=== PATIENT | female | born 1945 | race Caucasian/White ===

== ENCOUNTER 2019-12-10 08:38 | Outpatient (CLI) | payer MEDICARE, SELFPAY ==
--- NOTE | ~2019-12-10 | MM_ITS ---
EXAMINATION: MM screening [facility] BI w stephan HISTORY: Screening mammogram TECHNIQUE: Craniocaudal and mediolateral oblique 3-D tomosynthesis images were obtained and synthetic 2-D images were generated. CAD analysis was submitted and interpreted. COMPARISON: Comparison to multiple prior studies sequentially, with oldest reviewed study dated 05/02. BREAST PARENCHYMAL COMPOSITION: There are scattered areas of fibroglandular density. FINDINGS: There is no evidence of suspicious mass, calcification, or architectural distortion to sugg est malignancy in either breast. There has been no suspicious interval change. IMPRESSION: 1. No mammographic evidence of malignancy. 2. Recommend routine screening mammography in one year. BI-RADS Category 1: Negative Reviewed, dictated and finalized at location A.
--- NOTE | ~2019-12-10 | DEXA_ITS ---
Bone Density Report Name: Sadaf Blunt Age: 74 Sex: Female Ethnicity: White Date of : 1945 Indication: osteopenia; monitoring treatment; prior fracture; Referring Provider: Marimu Lopez Study: Bone densitometry was performed. Exam Date: December 10, 2019 Accession number: [id number] Bone Density: Region BMD T-score Z-score Classification AP Spine (L2, L3) 1.003 -0.5 2.0 Normal Femoral Neck (Left) 0.614 -2.1 0.0 Osteopenia Total Hip (Left) 0.752 -1.6 0.3 Osteopenia Total Hip Bilateral Avg 0.783 -1.3 0.6 Osteopenia Femoral Neck (Right) 0.633 -1.9 0.2 Osteopenia Total Hip (Right) 0.814 -1.0 0.8 Normal World Health Organization criteria for BMD impression classify patients as: Normal (T-score at or above -1.0), Osteopenia (T-score between -1.0 and -2.5), or Osteoporosis (T-score at or below -2.5). 10-year Fracture Risk: FRAX not reported because: Prior hip or vertebral fracture Treated for osteoporosis Previous Exams: Region Exam Age BMD T-score BMD Change BMD Change Date g/cm2 vs Baseline vs Previous AP Spine(L2, L3) 12/10/2019 74 1.003 -0.5 0.030(3.0%)# 0.024(2.4%)* 08/13/2017 71 0.979 -0.7 0.006(0.6%)# 0.006(0.6%)# 05/14/2013 67 0.973 -0.8 Total Hip(Left) 12/10/2019 74 0.752 -1.6 -0.099(-11.7%) -0.037(-4.7%)* 08/13/2017 71 0.789 -1.3 -0.062(-7.3%)# -0.062(-7.3%)# 05/14/2013 67 0.852 -0.7 Total Hip(Right) 12/10/2019 74 0.814 -1.0 0.050(6.5%)# 0.019(2.4%) 08/13/2017 71 0.795 -1.2 0.030(4.0%)# 0.030(4.0%)# 05/14/2013 67 0.765 -1.5 *Denotes significance at 95% confidence level, LSC for AP Spine = 0.022 g/cm2, LSC for Total Hip = 0.027 g/cm2 Clinical Information Provided by Patient: Have had a previous hip or vertebral fracture Has had a low trauma fracture Is being treated for osteoporosis Has used the following medications: Actonel (i.e. risedronate), Fosamax (i.e. alendronate), Vitamin D, Calcium Patient maximum height was 63 Menopause Age: 48 Drinks caffeinated beverages Onset of menses at age 10 Number of children 3 Impression: The patient has low bone mass, based on the Left Femoral Neck T-score. The patient has risk factors, including: previous fracture. The BMD for the Total Hip(Left) decreased, changing by -4.7% since the last DXA exam. Discussion: SIGNIFICANT BONE LOSS OBSERVED. Adherence to therapy (including calcium and vitamin D intake) should be assessed. If compliance
== END 2019-12-10 08:39 | disposition home or self-care (01) ==
LOC: ANHIMG 08:44
PROVIDERS: PCP Internal Medicine; Visit Provider Nurse Practitioner
DX: Z12.31 Encounter for screening mammogram for malignant neoplasm of breast (principal); M81.0 Age-related osteoporosis without current pathological fracture; M85.89 Other specified disorders of bone density and structure, multiple sites
CPT/HCPCS: 77063; 77067; 77080

== ENCOUNTER 2020-04-21 03:30 | Outpatient (CLI) | payer MEDICARE, SELFPAY ==
[2020-04-21 19:05] LABS: SARS-CoV-2 RNA PCR Negative
== END 2020-04-21 03:31 | disposition home or self-care (01) ==
LOC: ANHCOVIDDT 03:31
PROVIDERS: PCP Internal Medicine; Visit Provider Internal Medicine Gastroenterology
DX: Z01.812 Encounter for preprocedural laboratory examination (principal); Z20.828 Contact with and (suspected) exposure to other viral communicable diseases
CPT/HCPCS: 87635; C9803; U0003

== ENCOUNTER 2020-04-23 03:02 | Day surgery (SDC) | payer MEDICARE, SELFPAY ==
[2020-04-23 06:55] VITALS: BP 115/71; PULSE 72; RESP 12; TEMP 36.7; O2SAT 95; BMI 31.1
[2020-04-23] MEDS: LACTATED RINGERS 1,000 ML 150 ML IV CONT (07:03)
--- NOTE | 2020-04-23 07:24 | WPDANESEPPF ---
Anes - Initial Pre Proc Eval Procedure: Operation Date: 04/23/20 08:00 Proposed Procedures p Screening Colonoscopy - Selvin Shaw MD Date/Time: 04/23/20 07:24 Surgeon: Selvin Shaw MD Pre Op Diagnosis: Hx Colon Polyps Patient Data Age: 74 Gender: F Height: 1.6 m Weight: 79.8 kg Last Vital Signs Temp 36.7 C 04/23/20 06:55 Pulse 72 04/23/20 06:55 Resp 12 04/23/20 06:55 BP 115/71 04/23/20 06:55 Pulse Ox 95 04/23/20 06:55 Allergies Allergy/AdvReac Type Severity Reaction Status Date / Time No Known Allergies Allergy Unverified 04/23/20 06:54 Home Medications Medication Instructions Recorded Confirmed Type aspirin 81 mg tablet,delayed 81 mg PO DAILY 06/17/19 04/23/20 History release calcium carbonate 600 mg calcium 1,500 mg PO DAILY 06/17/19 04/16/20 History (1,500 mg) tablet krill 500 mg-omega 3 115 mg-dha 30 1 cap PO DAILY 06/17/19 04/16/20 History mg-epa 64 dk-zrmzheo-tshir capsule multivitamin 1 cap PO DAILY 06/17/19 04/16/20 History vitamins A,C,Y-jjlm-atcqqv 7,160 1 tablet PO BID 06/20/19 04/16/20 History unit-113 mg-100 unit tablet cholecalciferol (vitamin D3) 50 50 mcg PO DAILY #90 tablet 12/22/19 04/16/20 Rx mcg (2,000 unit) tablet lisinopril 20 1 tablet PO DAILY #90 tablet 01/26/20 04/16/20 Rx mg-hydrochlorothiazide 25 mg tablet Patient hx anesthesia problems: none Family hx anesthesia problems: none PMFSH Past Medical History Medical History (Updated 04/23/20 @ 07:25 by Tutu Ross MD) Age related osteoporosis Benign essential hypertension Body mass index (bmi) 31.0-31.9, adult (12/23/18) Hypertension Obesity, unspecified (05/18/16) Surgical History Surgical History (Updated 04/23/20 @ 07:25 by Tutu Ross MD) History of hand surgery Status post kyphoplasty L1 Family History Family History Grandparent Family history of osteoporosis Family history of cardiovascular disease Cerebrovascular accident Mother Family history of osteoporosis Patient's mother is in good health Family history of malignant neoplasm of kidney Father Family history of chronic obstructive pulmonary disease, Onset Age: 82 Sibling Family history of lung cancer Family history of malignant neoplasm of brain Other Family history of coronary artery disease Social History Social History Smoking status: Never smoker Second hand tobacco smoke exposure: No Alcohol intake: current Drinks per week: 3 Alcohol use details: WINE Substance use: never Substance use type: does not use Living arrangements: with family Spiritual care concerns: No Anes - Eval Final PreProcedure Day of Procedure 04/23/20 07:24 Patient weight: obese Heart: regular rate and rhythm Lungs: clear to auscultation and normal air movement Airway: Mallampati scale class II Neurological: alert and oriented Last oral intake: >/= 8 hours ASA classification: III Emergent: no Anesthetic plan: proceed Anesthesia type and monitoring: general GIVS Informed Consent: The patient's anesthetic plan and its attendant risks and benefits were discussed with the patient/family/POA. Questions were solicited and answers provided to the satisfaction of the patient/family/POA.
--- NOTE | 2020-04-23 07:45 | WPDGICN ---
Assessment and Plan Assessment and plan (1) History of colon polyps: Code(s): Z86.010 - Personal history of colonic polyps Status: Acute Assessment and Plan: Patient is a history of colonoscopies with several adenomatous colon polyps removed in the past. Most recent colonoscopy was 2014. Patient has no current symptoms. Plan is for surveillance colonoscopy at this time in in 5 years. GI Consult Note Consult date/time: 04/23/20 07:45 HPI: Sadaf Blunt is a 74 year old female seen in evaluation at the request of Dr Hagen. Patient has a history of tubular adenomatous colon polyp removed from the colon in 2014. Patient presents today for follow-up examination. She states that her current weight appetite bowel movements are normal. She denies abdominal pain. Her family history is noncontributory. She has previously had colon polyps on endoscopies over the years. Review of Systems Review of Systems: All systems reviewed & are unremarkable except as noted in HPI and below PMFSH Past Medical History Medical History Age related osteoporosis Benign essential hypertension Body mass index (bmi) 31.0-31.9, adult (12/23/18) Hypertension Obesity, unspecified (05/18/16) Surgical History Surgical History (Updated 04/23/20 @ 07:25 by Tutu Ross MD) History of hand surgery Status post kyphoplasty L1 Family History Family History Grandparent Family history of osteoporosis Family history of cardiovascular disease Cerebrovascular accident Mother Family history of osteoporosis Patient's mother is in good health Family history of malignant neoplasm of kidney Father Family history of chronic obstructive pulmonary disease, Onset Age: 82 Sibling Family history of lung cancer Family history of malignant neoplasm of brain Other Family history of coronary artery disease Social History Social History Smoking status: Never smoker Second hand tobacco smoke exposure: No Alcohol intake: current Drinks per week: 3 Alcohol use details: WINE Substance use: never Substance use type: does not use Living arrangements: with family Spiritual care concerns: No Meds Home Medications and Allergies Home Medications Medication Instructions Recorded Confirmed Type aspirin 81 mg tablet,delayed 81 mg PO DAILY 06/17/19 04/23/20 History release calcium carbonate 600 mg calcium 1,500 mg PO DAILY 06/17/19 04/16/20 History (1,500 mg) tablet krill 500 mg-omega 3 115 mg-dha 30 1 cap PO DAILY 06/17/19 04/16/20 History mg-epa 64 qi-bhthsyd-slytn capsule multivitamin 1 cap PO DAILY 06/17/19 04/16/20 History vitamins A,C,I-jesf-rurtfj 7,160 1 tablet PO BID 06/20/19 04/16/20 History unit-113 mg-100 unit tablet cholecalciferol (vitamin D3) 50 50 mcg PO DAILY #90 tablet 12/22/19 04/16/20 Rx mcg (2,000 unit) tablet lisinopril 20 1 tablet PO DAILY #90 tablet 01/26/20 04/16/20 Rx mg-hydrochlorothiazide 25 mg tablet Allergies Allergy/AdvReac Type Severity Reaction Status Date / Time No Known Allergies Allergy Unverified 04/23/20 06:54 Vital Signs Vital Signs - 24 hr 04/23/20 06:55 Temperature 98.0 F Pulse Rate 72 Respiratory Rate 12 Blood Pressure 115/71 Pulse Oximetry 95 Exam Narrative: Exam Narrative: Physical exam reveals patient to be alert. Vital signs stable. HEENT exam unremarkable. Lungs are clear to auscultation and percussion. Heart is without murmur or extra sounds. Abdominal exam bowel sounds are present soft nontender with no organomegaly. Digital external rectal exam is normal.
[2020-04-23 08:13] VITALS: BP 93/59; PULSE 66; RESP 19; O2SAT 98
[2020-04-23 08:23] VITALS: BP 101/71; PULSE 68; RESP 22; O2SAT 97
[2020-04-23 08:33] VITALS: BP 122/83; PULSE 63; RESP 21; O2SAT 97
== END 2020-04-23 08:44 | disposition home or self-care (01) ==
PROVIDERS: PCP Internal Medicine; Visit Provider Internal Medicine Gastroenterology
PROC: 0DJD8ZZ Inspection of Lower Intestinal Tract, Via Natural or Artificial Opening Endoscopic (ICD-10-PCS; CPT 45378; principal; 2020-04-23 08:00)
DX: Z12.11 Encounter for screening for malignant neoplasm of colon (principal); K63.5 Polyp of colon; K57.30 Diverticulosis of large intestine without perforation or abscess without bleeding; K64.8 Other hemorrhoids; M81.0 Age-related osteoporosis without current pathological fracture; E11.9 Type 2 diabetes mellitus without complications; E66.9 Obesity, unspecified
CPT/HCPCS: 45385; 88305; J2704; J7120

== ENCOUNTER 2020-11-23 07:52 | Outpatient (CLI) | payer MEDICARE, SELFPAY ==
[2020-11-23 18:37] LABS: Alanine Aminotransferase 24 U/L (4-35); Alkaline Phosphatase 65 U/L (38-126); Anion Gap 2 mmol/L (8-16); Aspartate Amino Transferase 26 U/L (14-36); Bilirubin,Total 0.3 mg/dL (0.2-1.3); Blood Urea Nitrogen 14 mg/dL (7-17); Calcium 9.9 mg/dL (8.4-10.2); Carbon Dioxide 37 mmol/L (22-30); Chloride 101 mmol/L (98-107); Cholesterol 206 mg/dL (0-200); Estimated Glomerular Filt Rate > 60; Glucose 97 mg/dL (65-105); HDL Direct 82 mg/dL; Potassium 4.3 mmol/L (3.4-5.0); Sodium 140 mmol/L (137-145); Triglycerides 124 mg/dL (<150)
[2020-11-23 18:48] LABS: LDL Cholesterol Direct 86 mg/dL
[2020-11-23 18:55] LABS: Vitamin D 25 Hydroxy 35.6 ng/mL
== END 2020-11-23 07:53 | disposition home or self-care (01) ==
PROVIDERS: PCP Internal Medicine; Visit Provider Nurse Practitioner
DX: M81.0 Age-related osteoporosis without current pathological fracture (principal); Z78.0 Asymptomatic menopausal state; E78.5 Hyperlipidemia, unspecified; R79.89 Other specified abnormal findings of blood chemistry
CPT/HCPCS: 36415; 80053; 80061; 82306; 84443

== ENCOUNTER 2020-12-13 14:28 | Outpatient (CLI) | payer MEDICARE, SELFPAY ==
--- NOTE | ~2020-12-13 | MM_ITS ---
EXAMINATION: MM screening [facility] BI w stephan HISTORY: Screening mammogram TECHNIQUE: Craniocaudal and mediolateral oblique 3-D tomosynthesis images were obtained and synthetic 2-D images were generated. CAD analysis was submitted and interpreted. COMPARISON: 12/10/2019, 08/13/2017, 06/21/2016 BREAST PARENCHYMAL COMPOSITION: There are scattered areas of fibroglandular density. FINDINGS: There is no evidence of suspicious mass, calcification, or architectural distortion to sugg est malignancy in either breast. There has been no suspicious interval change. IMPRESSION: 1. No mammographic evidence of malignancy. 2. Recommend routine screening mammography in one year. BI-RADS Category 1: Negative Reviewed, dictated and finalized at location A.
== END 2020-12-13 14:29 | disposition home or self-care (01) ==
LOC: ANHIMG 14:32
PROVIDERS: PCP Internal Medicine; Visit Provider Internal Medicine
DX: Z12.31 Encounter for screening mammogram for malignant neoplasm of breast (principal)
CPT/HCPCS: 77063; 77067

== ENCOUNTER 2021-05-25 08:19 | Outpatient (CLI) | payer MEDICARE, SELFPAY ==
[2021-05-25 11:19] LABS: Alanine Aminotransferase 26 U/L (4-35); Alkaline Phosphatase 74 U/L (38-126); Anion Gap 5 mmol/L (8-16); Aspartate Amino Transferase 26 U/L (14-36); Bilirubin,Total 0.4 mg/dL (0.2-1.3); Blood Urea Nitrogen 16 mg/dL (7-17); Calcium 10.2 mg/dL (8.4-10.2); Carbon Dioxide 36 mmol/L (22-30); Chloride 97 mmol/L (98-107); Cholesterol 216 mg/dL (0-200); Estimated Glomerular Filt Rate > 60; Glucose 106 mg/dL (65-110); HDL Direct 94 mg/dL; Potassium 4.5 mmol/L (3.4-5.0); Sodium 138 mmol/L (137-145); Triglycerides 114 mg/dL (<150)
[2021-05-25 11:30] LABS: LDL Cholesterol Direct 100 mg/dL
[2021-05-25 11:36] LABS: Vitamin D 25 Hydroxy 51.2 ng/mL
== END 2021-05-25 08:20 | disposition home or self-care (01) ==
PROVIDERS: PCP Internal Medicine; Visit Provider Internal Medicine
DX: E78.5 Hyperlipidemia, unspecified (principal); E03.9 Hypothyroidism, unspecified; E55.9 Vitamin D deficiency, unspecified; I10 Essential (primary) hypertension
CPT/HCPCS: 36415; 80053; 80061; 82306; 84443

== ENCOUNTER 2021-11-29 09:28 | Outpatient (CLI) | payer MEDICARE, SELFPAY ==
[2021-11-29 20:58] LABS: Alanine Aminotransferase 26 U/L (6-35); Albumin Level 4.3 g/dL (3.5-5.1); Alkaline Phosphatase 80 U/L (38-126); Anion Gap 1 mmol/L (8-16); Aspartate Amino Transferase 27 U/L (14-36); Bilirubin,Total 0.3 mg/dL (0.2-1.3); Blood Urea Nitrogen 16 mg/dL (7-17); Calcium 9.6 mg/dL (8.4-10.2); Carbon Dioxide 38 mmol/L (22-30); Chloride 96 mmol/L (98-107); Estimated Glomerular Filt Rate > 60; Glucose 98 mg/dL (65-110); Potassium 4.8 mmol/L (3.4-5.0); Sodium 135 mmol/L (137-145)
[2021-11-29 21:12] LABS: Free T4 Free Thyroxine 1.06 ng/mL (0.78-2.19)
== END 2021-11-29 09:29 | disposition home or self-care (01) ==
PROVIDERS: PCP Internal Medicine; Visit Provider Nurse Practitioner
DX: E78.5 Hyperlipidemia, unspecified (principal); I10 Essential (primary) hypertension; R79.89 Other specified abnormal findings of blood chemistry
CPT/HCPCS: 36415; 80053; 84439; 84443

== ENCOUNTER 2021-12-29 07:33 | Outpatient (CLI) | payer MEDICARE, SELFPAY ==
--- NOTE | ~2021-12-29 | MM_ITS ---
EXAMINATION: MM screening [facility] BI w stephan HISTORY: Screening TECHNIQUE: Craniocaudal and mediolateral oblique 3-D tomosynthesis images were obtained and synthetic 2-D images were generated. CAD analysis was submitted and interpreted. COMPARISON: . Comparison to multiple prior studies sequentially, with oldest reviewed study dated 2. BREAST PARENCHYMAL COMPOSITION: There are scattered areas of fibroglandular density. FINDINGS: There is no evidence of suspicious mass, calcification, or architectural distortion to sugg est malignancy in either breast. There has been no suspicious interval change. IMPRESSION: 1. No mammographic evidence of malignancy. 2. Recommend routine screening mammography in one year. BI-RADS Category 1: Negative Reviewed, dictated and finalized at location A.
== END 2021-12-29 07:34 | disposition home or self-care (01) ==
PROVIDERS: PCP Internal Medicine; Visit Provider Nurse Practitioner
DX: Z12.31 Encounter for screening mammogram for malignant neoplasm of breast (principal)
CPT/HCPCS: 77063; 77067

== ENCOUNTER 2022-06-13 08:47 | Outpatient (CLI) | payer MEDICARE, SELFPAY ==
[2022-06-13 19:40] LABS: Alanine Aminotransferase 33 U/L (6-35); Albumin Level 4.3 g/dL (3.5-5.1); Alkaline Phosphatase 76 U/L (38-126); Anion Gap 5 mmol/L (8-16); Aspartate Amino Transferase 56 U/L (14-36); Bilirubin,Total 0.5 mg/dL (0.2-1.3); Blood Urea Nitrogen 19 mg/dL (7-17); Calcium 9.3 mg/dL (8.4-10.2); Carbon Dioxide 34 mmol/L (22-30); Chloride 98 mmol/L (98-107); Cholesterol 218 mg/dL (0-200); Estimated Glomerular Filt Rate > 60; Glucose 91 mg/dL (65-110); HDL Direct 80 mg/dL; Sodium 137 mmol/L (137-145); Triglycerides 116 mg/dL (<150)
[2022-06-13 19:51] LABS: LDL Cholesterol Direct 87 mg/dL
[2022-06-13 20:42] LABS: Free T4 Free Thyroxine 0.95 ng/mL (0.78-2.19)
== END 2022-06-13 08:48 | disposition home or self-care (01) ==
PROVIDERS: PCP Internal Medicine; Visit Provider Internal Medicine
DX: E78.5 Hyperlipidemia, unspecified (principal); I10 Essential (primary) hypertension; R79.89 Other specified abnormal findings of blood chemistry; E55.9 Vitamin D deficiency, unspecified
CPT/HCPCS: 36415; 80053; 80061; 82306; 84439; 84443

== ENCOUNTER 2023-03-09 08:30 | Outpatient (CLI) | payer MEDICARE, SELFPAY ==
[2023-03-09 18:57] LABS: Basophils Absolute Auto 0.1 K/mm3 (0.0-0.1); Basophils Percent Auto 0.9 % (0.2-1.2); Eosinophils Absolute Auto 0.2 K/mm3 (0-0.3); Eosinophils Percent Auto 2.3 % (0-4.4); Hematocrit 46.4 % (37.0-47.0); Immature Granulocyte Absolute 0.07 K/mm3 (0.00-0.031); Immature Granulocyte Percent A 1.1 % (0-0.5); Immature Platelet Fraction Pct 11.6 % (0.9-11.2); Lymphocytes Absolute Auto 0.92 K/mm3 (0.9-3.2); Lymphocytes Percent Auto 13.9 % (18.3-44.2); Mean Corpuscular HGB Conc 32.3 g/dl (32-36); Mean Corpuscular Hemoglobin 31.1 pg (26-34); Mean Corpuscular Volume 96.3 fl (80-100); Mean Platelet Volume 13.3 fl (7.4-10.4); Monocytes Percent Auto 14.5 % (2.6-8.5); Neutrophils Absolute Auto 4.5 K/mm3 (1.3-6.7); Neutrophils Percent Auto 67.3 % (45.5-73.1); Platelet Count Result 244 k/mm3 (150-375); Red Blood Count 4.82 M/mm3 (4.2-5.4); Red Cell Distribution Width 13.2 % (11.5-14.5); White Blood Count 6.6 K/mm3 (4.5-10.0)
[2023-03-09 19:18] LABS: LDL Cholesterol Direct 103 mg/dL
[2023-03-09 19:24] LABS: Free T4 Free Thyroxine 1.43 ng/mL (0.78-2.19)
[2023-03-09 19:49] LABS: Alanine Aminotransferase 26 U/L (6-35); Albumin Level 4.2 g/dL (3.5-5.1); Alkaline Phosphatase 66 U/L (38-126); Anion Gap 2 mmol/L (8-16); Aspartate Amino Transferase 33 U/L (14-36); Bilirubin,Total 0.5 mg/dL (0.2-1.3); Blood Urea Nitrogen 13 mg/dL (7-17); Calcium 9.6 mg/dL (8.4-10.2); Carbon Dioxide 37 mmol/L (22-30); Chloride 97 mmol/L (98-107); Estimated Glomerular Filt Rate > 60; Glucose 106 mg/dL (65-110); HDL Direct 69 mg/dL; Potassium 4.1 mmol/L (3.4-5.0); Sodium 136 mmol/L (137-145); Triglycerides 117 mg/dL (<150)
[2023-03-09 19:55] LABS: Cholesterol 214 mg/dL (0-200)
== END 2023-03-09 08:31 | disposition home or self-care (01) ==
PROVIDERS: PCP Internal Medicine; Visit Provider Internal Medicine
DX: R53.83 Other fatigue (principal); I10 Essential (primary) hypertension; E78.5 Hyperlipidemia, unspecified; E03.9 Hypothyroidism, unspecified
CPT/HCPCS: 36415; 80053; 80061; 84439; 84443; 85025; 85055

== ENCOUNTER 2023-03-15 09:21 | Outpatient (CLI) | payer MEDICARE, SELFPAY ==
--- NOTE | ~2023-03-15 | XR_ITS ---
AP and oblique views of the left ribs, and PA and lateral chest radiographs Clinical History: Pain Findings: No rib fracture is seen. Osseous alignment is anatomic. There is linear scarring at the lef t mid to lower lung field.. Cardiomediastinal contour is within normal limits. Soft tissues are unrem arkable. L1 compression fracture with vertebroplasty cement noted. Impression: No rib fracture is seen. L1 compression fracture with vertebroplasty cement. Linear left mid to lower lung field scarring. Reviewed, dictated and finalized at location . Impression: No rib fracture is seen. L1 compression fracture with vertebroplasty cement. Linear left mid to lower lung field scarring.
== END 2023-03-15 09:22 | disposition home or self-care (01) ==
PROVIDERS: PCP Internal Medicine; Visit Provider Physician Assistant
DX: R07.81 Pleurodynia (principal)
CPT/HCPCS: 71101

== ENCOUNTER 2023-11-22 08:09 | Outpatient (CLI) | payer MEDICARE, SELFPAY ==
[2023-11-22 18:43] LABS: Cholesterol 216 mg/dL (0-200); HDL Direct 85 mg/dL; Triglycerides 129 mg/dL (<150)
[2023-11-22 18:54] LABS: LDL Cholesterol Direct 103 mg/dL
[2023-11-22 19:00] LABS: Free T4 Free Thyroxine 1.17 ng/mL (0.78-2.19)
== END 2023-11-22 08:10 | disposition home or self-care (01) ==
PROVIDERS: PCP Internal Medicine; Visit Provider Internal Medicine
DX: E78.5 Hyperlipidemia, unspecified (principal); E03.9 Hypothyroidism, unspecified; I10 Essential (primary) hypertension; R53.83 Other fatigue; R79.89 Other specified abnormal findings of blood chemistry
CPT/HCPCS: 36415; 80061; 84439; 84443

== ENCOUNTER 2024-03-24 11:09 | Outpatient (CLI) | payer MEDICARE, SELFPAY ==
--- NOTE | ~2024-03-24 | MM_ITS ---
EXAMINATION: MM screening [facility] w stephan HISTORY: Screening TECHNIQUE: Craniocaudal and mediolateral oblique 3-D tomosynthesis images were obtained and synthetic 2-D images were generated. CAD analysis was submitted and interpreted. COMPARISON: Comparison to multiple prior studies sequentially, with oldest reviewed study dated 01/2015. BREAST PARENCHYMAL COMPOSITION: Not dense: There are scattered areas of fibroglandular density. FINDINGS: There is no evidence of suspicious mass, calcification, or architectural distortion to sugg est malignancy in either breast. There has been no suspicious interval change. IMPRESSION: 1. No mammographic evidence of malignancy. 2. Recommend routine screening mammography in one year. BI-RADS Category 1: Negative Reviewed, dictated and finalized at location B.
== END 2024-03-24 11:10 | disposition home or self-care (01) ==
LOC: ANHIMG 11:10
PROVIDERS: PCP Internal Medicine; Visit Provider Internal Medicine
DX: Z12.31 Encounter for screening mammogram for malignant neoplasm of breast (principal)
CPT/HCPCS: 77063; 77067

== ENCOUNTER 2024-11-26 09:53 | Outpatient (CLI) | payer MEDICARE, SELFPAY ==
--- NOTE | ~2024-11-26 | XR_ITS ---
AP and lateral views of the right hip Clinical history: Pain Findings: No acute fracture or dislocation is seen. Osseous alignment is anatomic. Bilateral hip and SI joint spaces are preserved. There is a soft tissue calcification is superior to the right greater trochanter.. Impression: Soft tissue calcification superior to the right greater trochanter suspicious for calcific tendinitis of the gluteal tendons in this region. No fracture or dislocation. Reviewed, dictated and finalized at location M. Impression: Soft tissue calcification superior to the right greater trochanter suspicious f or calcific tendinitis of the gluteal tendons in this region. No fracture or dislocation.
--- OUTSIDE RECORDS SUMMARY | 2024-11-26 09:58 | XMS_ITS | Encounter Summary ---
Author Organization [facility] Address [address] [facility] [place] [address] Care Team Providers Care Barge Hand Name Role Phone Unavailable Primary Care Provider Unavailabl e Encounter Details Date Type Department Care Team (Late st Contact Info) Description 06/21/2022 Lab Requisition [facility] DermPath Lab [address] [place] [id number] Zachariah Jackson MD [address] [place] [address] Social History Tobacco Use Types Packs/Day Years Used Date Smoking Tobacco: Never Assessed Comments Unknown Sex and Gender Information Value Date Recorded Sex Assigned at Not on file Legal Sex Female 9:14 AM TRIPE SCRAPER Gender Identity Not on file Sexual Orientation Not on file documented as of this encounter Plan of Treatment Not on file documented as of this encounter Procedures Procedure Name Priority Date/Time Associated Diagnosis Comments DERMATOPATHOLOGY Routine 06/21/2022 12:0 0 AM TRIPE SCRAPER documented in this encounter Results * DERMATOPATHOLOGY (06/21/2022 12:00 AM TRIPE SCRAPER) Case Report Dermatopathology Report Case: [id number] Authorizing Provider: Zachariah Jackson MD Collected: 06/21/2022 12:00 AM Ordering Location: [facility] Derm[facility] Lab Received: 06/21/2022 04:32 PM Pathologist: Court Brink MD Specimen: Skin, left ant mandibular 2 2:39 PM TRIPE SCRAPER DERMATOPATHOLOGY LABORATORY Final Diagnosis Specimen A. SKIN, left ant mandibular: DERMAL SCAR RESIDUAL BASAL CELL CARCINOMA NOT IDENTIFIED (L90.5) 2 2:39 PM TRIPE SCRAPER DERMATOPATHOLOGY LABORATORY at 1439 TRIPE SCRAPER Clinical History BCC bx site 2 2:39 PM TRIPE SCRAPER DERMATOPATHOLOGY LABORATORY Gross Description Specimen A: Received is one formalin filled container labeled with the patient's name and designated left ant mandibular. The specimen consists of a non-oriented ellipse of skin measuring 20x7x6 mm. The epidermal surface is unremarkable. The margin is inked green. The 12 o'clock and 6 o'clock tips are submitted in cassette 1. The remainder of the ellipse is serially sectioned and submitted in cassette 2-3. Jar 0. 2 2:39 PM [facility] DERMATOPATHOLOGY LABORATORY Microscopic Description Specimen A. SKIN, left ant mandibular: There are fibroblasts and collagen bundles oriented parallel to the skin surface. There are elongated blood vessels, some of which are oriented perpendicular to the skin surface. No basal cell carcinoma is identified. 2 2:39 PM TRIPE SCRAPER DERMATOPATHOLOGY LABORATORY Disclaimer An external and internal positive and negative controls are appropriate for the histochemical, immunohistochemical and immunofluorescence stain(s) in this case (if any), except where stated explicitly. The performance characteristics of the stain(s) cited in this report were developed and its performance characteristic determined by the Dermatopathology Laboratory at [facility], directed by Dr. Dominic Orellana. These tests need not be, and therefore are not, approved by the [place] Food and Drug Administration. The tests are used for clinical purposes. Billing Codes Specimen Charges Stain Charges 45392 1 2 2:39 PM TRIPE SCRAPER DERMATOPATHOLOGY LABORATORY Embedded Images 2 2:39 PM TRIPE SCRAPER DERMATOPATHOLOGY LABORATORY Pathology/Cytolog y TISSUE SPECIMEN FROM SKIN / Unknown 06/21/2022 06/21/2022 4:32 PM TRIPE SCRAPER us Zachariah Jackson MD LAB - PATHOLOGY/CYTOLOGY ORDERAB LES Final Result DERMATOPATHOLOGY LABORATORY [facility] - Department of Dermatology [address] [place] [address], [facility] [phone] documented in this encounter Visit Diagnoses Not on filedocumented in this encounter
--- OUTSIDE RECORDS SUMMARY | 2024-11-26 09:58 | XMS_ITS | Encounter Summary ---
Author Organization [facility] Address [address] [place] [address] Care Team Providers Care Sewage Reticulation Drafting Officer Name Role Phone Unavailable Primary Care Provider Unavailabl e Encounter Details Date Type Department Care Team (Late st Contact Info) Description 05/31/2022 Lab Requisition [facility] DermPath Lab [address] [place] [id number] Zachariah Jackson MD [address] [place] [address] Social History Tobacco Use Types Packs/Day Years Used Date Smoking Tobacco: Never Assessed Comments Unknown Sex and Gender Information Value Date Recorded Sex Assigned at Not on file Legal Sex Female 9:14 AM CLEANING HANDYMAN Gender Identity Not on file Sexual Orientation Not on file documented as of this encounter Plan of Treatment Not on file documented as of this encounter Procedures Procedure Name Priority Date/Time Associated Diagnosis Comments DERMATOPATHOLOGY Routine 05/30/2022 12:0 0 AM CLEANING HANDYMAN documented in this encounter Results * DERMATOPATHOLOGY (05/30/2022 12:00 AM CLEANING HANDYMAN) Case Report Dermatopathology Report Case: [id number] Authorizing Provider: Zachariah Jackson MD Collected: 05/30/2022 12:00 AM Ordering Location: [facility] DermPath Lab Received: 05/31/2022 04:03 PM Pathologist: Court Brink MD Specimen: Skin, left ant mandibular 3:16 PM CLEANING HANDYMAN DERMATOPATHOLOGY LABORATORY Final Diagnosis Specimen A. SKIN, left ant mandibular: BASAL CELL CARCINOMA, NODULAR TYPE (C44.319) 3:16 PM CLEANING HANDYMAN DERMATOPATHOLOGY LABORATORY at [address] CLEANING HANDYMAN Clinical History Papule r/o BCC 2 3:16 PM CLEANING HANDYMAN DERMATOPATHOLOGY LABORATORY Gross Description Specimen A: Received is one formalin filled container labeled with the patient's name and designated left ant mandibular. The specimen consists of a shave biopsy measuring 4x3x2 mm. Jar 0. 2 3:16 PM [facility] DERMATOPATHOLOGY LABORATORY Microscopic Description Specimen A. SKIN, left ant mandibular: Within the dermis there are aggregates of basaloid cells with a high nuclear to cytoplasmic ratio and peripheral palisading. 2 3:16 PM CLEANING HANDYMAN DERMATOPATHOLOGY LABORATORY Disclaimer An external and internal positive and negative controls are appropriate for the histochemical, immunohistochemical and immunofluorescence stain(s) in this case (if any), except where stated explicitly. The performance characteristics of the stain(s) cited in this report were developed and its performance characteristic determined by the Dermatopathology Laboratory at [facility], directed by Dr. Dominic Orellana. These tests need not be, and therefore are not, approved by the [place] Food and Drug Administration. The tests are used for clinical purposes. Billing Codes Specimen Charges Stain Charges 39103 1 2 3:16 PM CLEANING HANDYMAN DERMATOPATHOLOGY LABORATORY Embedded Images 2 3:16 PM CLEANING HANDYMAN DERMATOPATHOLOGY LABORATORY Pathology/Cytolog y TISSUE SPECIMEN FROM SKIN / Unknown 05/30/2022 05/31/2022 4:03 PM CLEANING HANDYMAN Zachariah Jackson MD LAB - PATHOLOGY/CYTOLOGY ORDERAB LES Final Result DERMATOPATHOLOGY LABORATORY [facility] - Department of Dermatology [facility] Medicine [address] [place] [address], [address] [place] [address], [facility] [phone] documented in this encounter Visit Diagnoses Not on filedocumented in this encounter
--- OUTSIDE RECORDS SUMMARY | 2024-11-26 09:58 | XMS_ITS | Encounter Summary ---
Author Organization [facility] Address [address] [place] [address] Care Team Providers Care Computer Animator Name Role Phone Unavailable Primary Care Provider Unavailabl e Encounter Details Date Type Department Care Team (Late st Contact Info) Description 11/23/2022 Lab Requisition 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 Received: 11/23/2022 08:53 AM Pathologist: Court Brink MD Specimens: A) - Skin, left upper arm B) - Skin, left chin 5:48 PM CDT DERMATOPATHOLOGY LABORATORY Final Diagnosis Specimen A. SKIN, left upper arm: BASAL CELL CARCINOMA, NODULAR TYPE (C44.619) Specimen B. 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 The specimen consists of a shave biopsy measuring 6x4x2 mm. Jar 0. Specimen B: Received is one formalin filled container labeled with the patient's name and designated left chin. The specimen consists of a shave biopsy measuring 6x5x2 mm. Jar 0. 3 5:48 PM CDT DERMATOPATHOLOGY LABORATORY Microscopic Description Specimen A. SKIN, left upper arm: Within the dermis there are aggregates of basaloid cells with a high nuclear to cytoplasmic ratio and peripheral palisading. Specimen B. SKIN, left chin: The epidermis shows parakeratosis, full thickness disorderly maturation of keratinocytes, mitoses at different levels, and dyskeratotic cells. 3 5:48 PM CDT DERMATOPATHOLOGY LABORATORY Disclaimer An external and internal positive and negative controls are appropriate for the histochemical, immunohistochemical and immunofluorescence stain(s) in this case (if any), except where stated explicitly. The performance characteristics of the stain(s) cited in this report were developed and its performance characteristic determined by the Dermatopathology Laboratory at [facility], directed by Dr. Dominic Orellana. These tests need not be, and therefore are not, approved by the [place] Food and Drug Administration. The tests are used for clinical purposes. Billing Codes Specimen Charges Stain Charges 04466 01775 1 1 3 5:48 PM CDT DERMATOPATHOLOGY LABORATORY Embedded Images 3 5:48 PM CDT DERMATOPATHOLOGY LABORATORY Pathology/Cytology TISSUE SPECIMEN FROM SKIN / Unknown 11/21/2022 11/23/2022 8:53 AM CDT Miscellaneous samples (specimen) TISSUE SPECIMEN FROM SKIN / Unknown 11/21/2022 11/23/2022 8:53 AM CDT Zachariah Jackson MD LAB - PATHOLOGY/CYTOLOGY ORDERAB LES Final Result DERMATOPATHOLOGY LABORATORY [facility] - Department of Dermatology [facility] [address] [place] [address], [address] [phone] documented in this encounter Visit Diagnoses Not on filedocumented in this encounter
--- OUTSIDE RECORDS SUMMARY | 2024-11-26 09:58 | XMS_ITS | Clinical Summary ---
Author Organization [facility] Address [address] [place] [address] Care Team Providers Care Budget Accountant Name Role Phone Unavailable Primary Care Provider Unavailabl e Source Comments [facility] [employer],non-owned Affiliates and Associated Physician Practices is amultiple site organization consisting of ambulatory clinics and hospital sitesin [place], [place], [place] and [place]. This disclosure is being madepursuant to the Care Everywhere program and may not contain all information available regarding this patient. 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 Gender Identity Not on file Sexual Orientation Not on file Plan of Treatment Health Maintenance Due Date Last Done Comments BONE DENSITY TESTING 1945 DTAP/TDAP/TD VACCINES (1 - Tdap) 1962 PNEUMOCOCCAL VACCINE 50+ (1 of 1 - PCV) 1993 ZOSTER VACCINE (1 of 2) 1993 Respiratory Syncytial Virus (RSV) Vaccine Pt: or over 60 yrs (1 - 1-dose 75+ series) 2018 COVID-19 VACCINE ( - 2023-2 5 season) 2024 DEPRESSION SCREENING 07/02/2024 MEDICARE AWV CALENDAR YEAR 2024 INFLUENZA VACCINE (Season Ended) 2025 HEPATITIS B VACCINE Aged Out No longe r eligible based on patient's age to complete this topic HIB VACCINE Aged Out No longer eligi ble based on patient's age to complete this topic HPV VACCINE Aged Out No longer eligi ble based on patient's age to complete this topic MENINGOCOCCAL (Group B) VACC INE SHARED DECISION-MAKING Aged Out No longer eligibl e based on patient's age to complete this topic MENINGOCOCCAL GROUPS A/C/Y/W VACCINE Aged Out No longer eligible b ased on patient's age to complete this topic Insurance
--- OUTSIDE RECORDS SUMMARY | 2024-11-26 09:58 | XMS_ITS | Continuity of Care Document ---
Author Organization [facility] Address [address] [place] [address] [place] [address] Phone Care Team Providers Care Vocational Training Teacher Name Role Phone Alvin Bravo Unavailable Unavailable Procedures Procedure Date Eye Exam, New Patient Dilated Macular Exam Performed 10 Counseling For Antioxidant Supplements O Refraction Advance Directives Directive Yes / No Effective Date File Name No Information Encounters Encounter Description Practice Location Reason(s) For Visit Diagnoses Date Provider Providers Copied on Encounter [facility], [address], [place], [place], [id number], [place] tel:[phone] [facility] No Information [phone] 0 Megsy Edward. [address] [facility] [address] , [address], [place], [address], [place]. tel:[phone] Family History Family Member Type Diagnosis Age At Onset No Information Payers Payer name Insurance type Covered constitution party ID Authoriza tion(s) Medicare [facility] [id number] [facility] [place] [id number] Social History Type Description Quantity Date Captured [...]
--- OUTSIDE RECORDS SUMMARY | 2024-11-26 09:58 | XMS_ITS | Data Portability ---
Author Organization [facility] Address [address] [place] [address] Assessment No assessment recorded. Plan of Treatment Reminders Order Date Submit Date Provider Last Modified By Organization Details Last Modified Time Details Appointments None record ed. Lab None record ed. Referral None record ed. Procedures None record ed. Surgeries None record ed. Imaging None record ed. Medication Orders None record ed. Patient Targets Encounter Date Encounter Id Patient Goals Patient Target Last Modified By Organization Details Last Modified Time drink 72oz water daily [email or web address] Not available 06/10/2024 20:39:16 Patient Instructions Encounter Date Encounter Id Patient Instructions Last Modified By Organization Details Last Modified Time 06/10/2024 [id number] When You Want to Lose Weight: Care Instructions [email or web address] Not available 06/10/2024 20:39:56 high blood pressure: care instructions [email or web address] Not available 06/10/2024 20:39:56 learning about high blood pressure [email or web address] Not available 06/10/2024 20:39:57 hypothyroidism: care instructions [email or web address] Not available 06/10/2024 20:39:56 How can you care for yourself at home and avoid low back pain in the future? >Sit or lie in positions that are most comfortable and reduce your pain. Try one of these positions when you lie down: >Lie on your back with your knees bent and supported by pillows. >Lie on the floor with your legs on the seat of a sofa or chair. >Lie on your side with your knees and hips bent and a pillow between your legs. >Lie on your stomach if it does not make pain worse. >Do not sit up in bed, and avoid soft couches and twisted positions. >Bed rest can help relieve pain at first, but it delays healing. Avoid bed rest after the first day of back pain. >Change positions every 30 minutes. If you must sit for long periods of time, take breaks from sitting. Get up and walk around, or lie in a comfortable position. >Try using a heating pad on a low or medium setting for 15 to 20 minutes every 2 or 3 hours. Try a warm shower in place of one session with the heating pad. >You can also try an ice pack for 10 to 15 minutes every 2 to 3 hours. Put a thin cloth between the ice pack and your skin. >Take short walks several times a day. You can start with 5 to 10 minutes, 3 or 4 times a day, and work up to longer walks. Walk on level surfaces and avoid hills and stairs until your back is better. >Return to work and other activities as soon as you can. Continued rest without activity is usually not good for your back. If any medications were prescribed, take it as directed. To prevent future back pain, do exercises to stretch and strengthen your back and stomach. Learn how to use good posture, safe lifting techniques, and proper body mechanics. [email or web address] Not available 06/10/2024 20:39:23 Treatment option s and plan discussed with the patient. All questions answered to the best of my best knowledge. Patient agrees to plan and follow up as recommended unless otherwise documented. Return to the clinic as scheduled or PRN, report to the ER with any emergencies. Patient verbalized understanding and agreement. [email or web address] Not available 06/10/2024 20:39:28 Reason for Referral None Reported. Problems Name Problem SNOMED Code Status Onset Date Resolution Date Notes Provider Name and Address Organization Details Recorded Time Essential hypertension 32949376 Active 2023 Breanne Centeno [facility] 4 13:30:35 Obese 114463041 Active 2023 Jonathan Iraheta, DO [address] [place] [address], [address], [address], [facility] 4 20:36:08 Hypothyroidi sm 00954624 Active 2023 Jonathan Iraheta DO [address] [place] [address], [address], [address], [facility] 4 20:37:24 Vitamin D deficiency 56988507 Active 2023 Jonathan Iraheta, DO [address], [address] [facility], [place], [address], [facility] 4 20:37:34 Osteopenia 453722255 Active 2023 Jonathan Iraheta, DO [address], [facility] [address], [place], [address], [facility] 4 20:38:28 Chronic low back pain 144206687 Active 2023 Jonathan Iraheta, DO [address], [facility] [address], [place], [address], [facility] 4 20:38:39 Problem Notes None recorded. Procedures Surgical History Date Name Laterality Status Provider Name and Address Organization Details Recorded Time 4 HEDIS - AWV - MEDICATION - LIST IN MEDICAL RECORDS REVIEWED - G8427 completed [facility] 06/10/2024 13:34:03 4 HEDIS - REVIEW OF MEDICATION DOCU IN MED REC - Medicare - G8427 [facility] 06/10/2024 13:34:04 4 HEDIS - AWV - PHQ9 Discussion Mental Health Issues / Depression Negative - G8510 [facility] 06/10/2024 13:34:12 4 HEDIS - BMI High - Must Have Plan of Care - Medicare - G8417 [facility] 06/10/2024 13:34:01 4 HEDIS - AWV - ADVANCED DIRECTIVE DISCUSSED & DOCUMENTED IN MED REC 63 YRS - 1158F completed [facility] 06/10/2024 13:34:56 4 HEDIS Tobacco Screening Negative for Smoking - 1036F completed [facility] 06/10/2024 13:33:59 4 HEDIS - AWV - Smoking Cessation Counseling Documented - 4000f [facility] 06/10/2024 13:34:14 2 Most Recent Mammogram completed Breanne Centeno [facility] 06/10/2024 13:32:47 2 Colonoscopy completed Breannekae Centeno [facility] 06/10/2024 13:31:55 Cataract Surgery completed Breanne Centeno [facility] 06/10/2024 13:31:32 Imaging Results None recorded. Procedure Notes None recorded. Medical Equipment None Reported. Allergies No known drug allergies Medications Name Sig Start Date Stop Date Status Note LastModified by Organization Details LastModified Time aspirin 81 mg tablet,delayed release Take 1 tablet every day by oral route. active Not Available Not Available No t Available levothyroxine 50 mcg tablet Take 1 tablet every day by oral route. active Not Available Not Available No t Available lisinopril 20 mg-hydrochlorot hiazide 25 mg tablet Take 1 tablet every day by oral route. active Not Available Not Available No t Available calcium carbonate active Not Available Not Available No t Available multivitamin active Not Available Not Available Not Available Vitamin D3 50 mcg (2,000 unit) tablet Take 1 tablet every day by oral route. active Not Available Not Available No t Available Vitals Date Recorded Body weight Body mass index (BMI) Body height Respiratory rate Oxygen saturation Oxygen saturation in Arterial blood by Pulse oximetry Heart rate Body temperature Systolic blood pressure Diastolic blood pressure Systolic blood pressure Diastolic blood pressure Provider Name and Address Organization Details Last Updated DateTime 4 77785.8 1 g 32.2 kg/m2 160.02 cm 16 /min 98 % 98 % 75 /min 97.7 [degF] 163 mm[Hg] 76 mm[Hg] 153 mm[Hg] 89 mm[Hg] Breanne Centeno [facility] 4 13:37:09 Social History Question Answer Notes LastModified by Organizat ion Details LastModified Time Tobacco Smoking Status Never Smoker Breanne Centeno [facility] 06/10/2024 13:31:25 Do You Have An Advance Directive? Yes [email or web address] Information not available 06/10/2024 How Many Years Have You Consumed Alcohol? 45 [email or web address] Information not available 06/10/2024 Is Blood Transfusion Acceptable In An Emergency? Yes [email or web address] Information not available 06/10/2024 What Is Your Level Of Caffeine Consumption? Occasional Information not available 06/10/2024 What Is Your Code Status? DNR [email or web address] Information not available 06/10/2024 Do You Have A Directive To Physicians? No [email or web address] Information not available 06/10/2024 Do You Have A Medical Power Of Fashion Show Director? Yes [email or web address] Information not available 06/10/2024 What Was The Date Of Your Most Recent Tobacco Screening? 06/10/2024 [email or web address] Information not available 06/10/2024 Do You Have An Out Of Hospital DNR? No [email or web address] Information not available 06/10/2024 Has Tobacco Cessation Counseling Been Provided? No [email or web address] Information not available 06/10/2024 Sex: Female Functional Status Question Answer Note LastModified by Organizat ion Details LastModified Time Do you use any illicit or recreational drugs? No [email or web address] Information not available 06/10/2024 Do you or have you ever used any other forms of tobacco or nicotine? No Information not available 06/10/2024 What is your level of alcohol consumption? Occasional [email or web address] Information not available 06/10/2024 Mental Status None recorded. Family History Relationship Description Onset Age of this Age Resolved Age Notes LastModified by Organization Details LastModified Time Father No current problems or disability [email or web address] Not available 06/10 13:30:37 Mother No current problems or disability [email or web address] Not available 06/10 13:30:37 Medical History Condition Response Aneurysm/stroke N Coronary Artery Disease N Gout N Kidney Stones N Hyperthyroidism N COPD N Depression N Anxiety Disorder N Obesity N Arthritis N Mental Disorder N Cancer N Stroke N Fibromyalgia N Kidney Disease N Heart Problems N Migraines N MRSA exposure N Bleeding Disorder N Tuberculosis N AIDS/HIV N Asthma N Substance Abuse N Peripheral Vascular Disease N Pulmonary Embolism N Chronic Ear Infections N Breast Cancer N Lung Cancer N Hypothyroidism N Defects or Inherited Disease N Pacemaker N Difficulty Swallowing N Meniere's disease N Chronic Fatigue N Endometriosis N Bladder or Kidney Problems N High Cholesterol N Liver Disease N Anemia N Heart Attack (PR) N Diabetes N Seizures/Epilepsy N Congestive Heart Failure (CHF) N Chronic Pain N Abuse/Domestic Violence N Diverticulitis N Reflux/GERD N Heart Disease N Hypertension Y Osteoporosis N Gynecological History Statement/Question Response If Post Menopausal, Age at Menopause 48 Sexually Active? N STIs/STDs N Sexual Problems? N Age at Menarche 10 Most Recent Mammogram 11/16/2021 Age at First Child 22 Obstetrics History GPAL:G 3 P 0 0 0 3 Type Value Living 3 Total 3 Immunizations Vaccine Type Date Status Note Provider Nam e and Address Organization Details Recorded Time Influenza, adjuvanted, quadrivalent, PF 03/29/2021 [facility] 13:22:03 COVID-19, mRNA, LNP-S, PF, 100 mcg/0.5mL dose or 50 mcg/0.25mL dose 08/04/2020 completed [facility]/10/2024 13:22:03 COVID-19, mRNA, LNP-S, PF, 100 mcg/0.5mL dose or 50 mcg/0.25mL dose 09/06/2020 completed [facility] 06/10/2024 13:22:03 COVID-19, mRNA, LNP-S, PF, 100 mcg/0.5mL dose or 50 mcg/0.25mL dose 10/03/2021 completed Breanne Centeno null, [facility] 06/10/2024 13:22:03 COVID-19, mRNA, LNP-S, PF, 100 mcg/0.5mL dose or 50 mcg/0.25mL dose 04/27/2021 completed Breanne Centeno [facility] 06/10/2024 13:22:03 COVID-19, mRNA, LNP-S, bivalent, PF, 50 mcg/0.5 mL or 25mcg/0.25 mL dose 04/13/2022 completed [facility] 06/10/2024 13:22:03 RSV, recombinant, protein subunit RSVpreF, adjuvant reconstituted, 0.5 mL, PF 05/02/2023 completed Breanne Centeno [facility] 06/10/2024 13:22:03 COVID-19, mRNA, LNP-S, PF, 50 mcg/0.5 mL 09/11/2023 completed Breanne Centeno [facility] 06/10/2024 13:22:03 Past Encounters Encounter ID Performer Location Encounter Start Date Encounter Closed Date Diagnosis/Indication Diagnosis SNOMED-CT Code Diagnosis ICD10 Code Diagnosis Note [id number] Jonathan Iraheta DO [facility] [address] [place] [address] 06/10/2024 12:50:10 06/10/2024 14:04:33 Obese 903779469 E66.9 32.2 Patient ne w to provider [id number] 66743 Z76.89 Med reconcilia tion completedR eviewed medical, family, social and surgical historyRev iew of records, labs, imaging done and discussed with pt as available and appropriat eDiscussed e/m chronic conditions Discussed age appropriat e screenings and immunizati ons Hypothyroidism 44676117 E03.9 continue sameasked pt to request lab records from PCP Essential hypertension 49835573 I10 continue samegoal <140/90 Vitamin D deficiency 347 10682 E55.9 continue same Osteopenia 110028352 M85 .80 pt reports as seen on dxa previously Chronic low back pain 27 3598059 M54.50 on and off, intermitte ntlocated aroudn R SI jointimpro alejandra with topcial CBD, voltarenre lieved with tylenol, nsaidsacti vity modificati on, OTC meds PRN Health Concerns Section Related Observation LastModified by Organization Detai ls LastModified Time None Recorded Concern Status LastModified by Organization Details LastModified Time None Recorded Advance Directives Directive Y: Payers Insurance Date Sequence Insurance Name Policy Number Policy Cee Covered Member ID Cee Member ID Guarantor Name 06/19/2024 MEDICARE A-[place]: [facility] - [facility] [id number] Sadaf A Merlnee [id number] Sadaf [address]reras[address] 06/10/2024 1 [employer] (MEDICARE REPLACEMENT/A DVANTAGE - PPO) [id number] Sadaf A Merlene [id number] Sadaf Merlene Notes Date Note Type Note Provider Name and Address Organization Details Recorded Time 06/10/2024 text/html Generic HPI TemplateReported bypatient.Notes:New patientSnow bird - 6 months in [place], 6 months [facility] PCP in [place] who handles her medications, lab work - she wants someone available down here should she need itHypothyroidism - on 50mcg synthroid. tolerating wellHTN on lisinopril/hctz. Tolerating well - no recent falls. Checks BPs at home usualy <140/90.Takes D3, asa, otc meds as needed. Never smoker. Occasional etoh use. No illicit drug use.She is DNR, has PoA on file.Performs adls/iadls herself without difficulty. Patient Learning Needs Assessment Area of Content: X Disease Process Equipment Treatment Procedure Medication Barrier to Care: NO Demonstrates Desire to Learn YES Communication Barrier: X None Physical Cognitive Emotional Language Other ____ Learning Barriers: X None Language Cultural Beliefs Financial Issues Hearing Impairment Vision Impairment Emotional Barriers Physical Problems Gnosticism Beliefs Low Literacy Learning Problems Disinterested Preferred Teaching Method: X Handout X Discussion Class Video (if available) Demonstration Comments: Jonathan Iraheta, DO [address] [place] [address], [place] [address], [place], [address], [facility] 06/10/2024 20:40:00 OBGyn Episode No OBEpisode recorded.
== END 2024-11-26 09:54 | disposition home or self-care (01) ==
PROVIDERS: PCP Internal Medicine; Visit Provider Internal Medicine
DX: M70.61 Trochanteric bursitis, right hip (principal)
CPT/HCPCS: 73502

== ENCOUNTER 2025-01-15 09:37 | Emergency (ER) | payer MEDICARE, SELFPAY ==
--- NOTE | 2025-01-15 09:45 | ED_ITS ---
HPI - URI/Sore Throat General Chief Complaint: Upper Respiratory Infection Stated Complaint: Upper Respiratory Symptoms patient presents to [facility] with complaints of sore throat that began 4 days ago with nasal congestion, nasal drainage, headache, fatigue and over the last couple days productive cough. Patient noted that she has been visiting her in the hospital flu had pneumonia. Noted that he did test negative for flu and COVID. Patient has been using elder Donovan gummies as well as Tylenol and sinex nasal spray. Patient does note wheezing at night time and occasional shortness of breath on exertion. denies fever, chills, body aches, dizziness, nausea, vomiting diarrhea. Related Data Home Medications ?Medication ?Instructions ?Recorded ?Confirmed ?Last Taken ?Type aspirin 81 mg tablet,delayed 81 mg PO DAILY 06/17/19 01/15/25 04/22/20 History release (Aspir-Low) calcium carbonate 1,500 mg PO DAILY 06/17/19 01/15/25 04/22/20 History multivitamin 1 cap PO DAILY 06/17/19 01/15/25 04/22/20 History vitamins A,C,O-wbzx-cndumg 2,148 1 tablet PO BID 06/20/19 01/15/25 04/22/20 History mcg-113 mg-45 mg-17.4 mg tablet (PreserVision AREDS) krill oil 500 mg capsule mg PO 11/14/24 11/14/24 Unknown History lisinopril 20 tablet 01/15/25 Unknown History mg-hydrochlorothiazide 25 mg tablet Allergies Allergy/AdvReac Type Severity Reaction Status Date / Time No Known Allergies Allergy Verified 01/15/25 10:00 Review of Systems Constitutional: Constitutional: Reports as per HPI, Reports chills, Reports fatigue, Denies fever(s) and Denies weakness Eyes: Eyes: Reports no additional eye complaints ENT: Reports as per HPI, Denies vertigo, Denies dizziness, Reports nasal congestion and Reports sore throat Comments: Nasal drainage Cardiovascular: Cardiovascular: Reports no additional cardiovascular complaints Respiratory: Respiratory: Reports as per HPI, Reports chest congestion, Reports cough, Reports dyspnea and Reports wheezing Gastrointestinal: Gastrointestinal: Reports no additional gastrointestinal complaints Genitourinary: Genitourinary: Reports no additional female genitourinary complaints Musculoskeletal: Musculoskeletal: Reports no additional musculoskeletal complaints Integumentary/Breasts: Skin/Breast: Reports system reviewed and no additional complaints, except as docu Neurologic: Reports as per HPI, Denies vertigo, Denies dizziness, Reports headache(s), Denies focal weakness, Denies numbness and Denies weakness Psychiatric: Psychiatric: Reports no additional psychiatric complaints Endocrine: Endocrine: Reports no additional endocrine complaints Hematologic/Lymphatic: Hematologic/Lymphatic: Reports no additional hematologic/lymphatic complaints Allergic/Immunologic: Allergic/Immunologic: Reports no additional allergic/immunologic complaints [facility], [facility] Past Medical History Medical History (Updated 01/15/25 @ 10:13 by DANIELA Gilmore-C) BMI 32.0-32.9,adult Left groin pain Personal history of nicotine dependence Abnormal thyroid blood test Hyperlipidemia Benign essential hypertension Body mass index (bmi) 31.0-31.9, adult (12/23/18) Obesity, unspecified (05/18/16) Hypertension Age related osteoporosis Surgical History Surgical History Status post kyphoplasty L1 History of hand surgery Family History Family History (Updated 11/14/24 @ 10:09 by ASHLIE Moncada) Grandparent Family history of osteoporosis Family history of cardiovascular disease Cerebrovascular accident Mother Family history of osteoporosis Family history of malignant neoplasm of kidney Father Family history of chronic obstructive pulmonary disease, Onset Age: 82 Sibling Family history of lung cancer Family history of malignant neoplasm of brain Other Family history of coronary artery disease Social History Social History (Updated 11/14/24 @ 10:11 by ASHLIE Moncada) Smoking packs per day: 1 Smoking cigarettes per day: 20.0 Years smoked: 40 Smoking pack-years: 40.00 Smoking status: Former smoker Tobacco type: cigarettes Second hand tobacco smoke exposure: Yes Alcohol intake: current Drinks per week: 3 Alcohol use details: WINE Substance use: never Substance use type: does not use Do You Feel Safe in your Home?: Yes Lack of Transportation: No Lack of Food: Never True Current Housing: I Have Housing Concerned About Future Housing: No Difficulty Paying Gas/Electric Bills: No Difficulty Paying for Meds: No Currently Unemployed: No Education: Master's Degree or Higher Difficulty w/ Childcare or Family Care: No Living arrangements: with family Occupation/Education: retired 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[employer] Gender identity (if verbalized by the patient): Female Spiritual care concerns: No Exam Const: General: no acute distress and ill appearing Nutritional Appearance: well nourished Orientation/consciousness: patient oriented x3 Limitations: no limitations Other: fatigued HENMT: Head: normal to inspection Ears: external ears normal and TM's normal bilaterally Face/Nose/Sinus: Normal external nose present and Normal nares present Face and sinus: normal facial exam and sinus tenderness Mouth: Yes Normal oral and palatal mucosa present Throat: posterior oropharynx abnormal ( minimal erythema and edema) Neck: Neck: normal visual inspection and no lymphadenopathy Chest: Chest palpation & inspection: normal inspection of the chest Resp: Effort & Inspection: labored (minimal ) Auscultation: diminished lung sounds diffuse Cardio: Rate: regular rate Rhythm: regular rhythm Skin: General skin exam: normal color Rashes: no rashes Wounds: no wounds Neuro: General: patient oriented x3 and moves all extremities Speech: normal speech Gait exam (Neuro): Normal gait present Psych: Mental Status: mental status grossly normal Affect: normal affect Attitude: cooperative Course Course Level of Care: Express Care Visit Vital Signs Vital signs: Vital Signs Temperature 97.3 F L 01/15/25 09:51 Pulse Rate 83 01/15/25 09:51 Respiratory Rate 16 01/15/25 09:51 Blood Pressure 149/82 H 01/15/25 09:51 Pulse Oximetry 98 01/15/25 09:51 Temperature 97.3 F L 01/15/25 09:51 Pulse Rate 83 01/15/25 09:51 Respiratory Rate 16 01/15/25 09:51 Blood Pressure 149/82 H 01/15/25 09:51 Pulse Oximetry 98 01/15/25 09:51 MDM - URI/Sore Throat MDM Narrative Medical decision making narrative: flu, COVID, strep testing completed in clinic. Discharge instructions reviewed with patient, as well as provided in writing per nursing staff. The instructions also include specific and strict return/GO TO THE ER as well as f/u information. All questions have been answered, and the patient deny any further questions with discharge and discharge plan. Differential Diagnosis Differential diagnosis: Likely upper respiratory infection, croup, otitis media, sinusitis, viral infection, bronchitis, influenza and pharyngitis Medical Records Attestation: I reviewed the patient's medical records. Lab Data Attestation: I reviewed the patient's lab results. Lab results narrative: Negative testing Discharge Plan Discharge Clinical Impression: Bronchitis Patient Disposition: Home Condition: Stable Instructions: Antibiotic Form, Sinusitis (ED), Acute Bronchitis (ED) Additional Instructions: Return to urgent care or go to the ER for new or worsening symptoms. Continue to take Tylenol or Motrin for pain. Use a humidifier or vaporizer at night. Take Medications as prescribed. Drink plenty of water. 8-10 glasses per day. Use flonase 2 times per day for 5 days then as needed Take mucinex 2 times per day and be sure to take with 8oz of water. Follow up with Primary provider if not getting better. Return to Express Care or go to the ER for new or worsening symptoms. Take the full dose of steroids as directed to decrease inflammation and open up sinus and airway Increase water intake to 8-10 glasses per day take full dosing of antibiotics with yogurt or probiotics. Patient Language: Surinamese Prescriptions: New azithromycin [Zithromax] 250 mg tablet See Rx Instructions .ROUTE .COMPLEX Qty: 6 0RF Rx Instructions: For 250 mg dose pack: take 500 mg today (day 1), then 250 mg for 4 days (days 2-5) methylprednisolone [Medrol (Isreal)] 4 mg tablets,dose pack See Rx Instructions .ROUTE .COMPLEX Qty: 21 0RF Rx Instructions: for 6 days codeine-guaifenesin [Guaifenesin AC] 10-100 mg/5 mL liquid 5 ml PO Q6H PRN (Reason: cold symptoms) Qty: 120 0RF albuterol sulfate [Ventolin HFA] 90 mcg/actuation HFA aerosol inhaler 2 puff inhalation QID PRN (Reason: shortness of breath or wheezing) Qty: 6.7 0RF No Action lisinopril-hydrochlorothiazide 20-25 mg tablet calcium carbonate 600 mg calcium (1,500 mg) tablet 1,500 mg PO DAILY multivitamin Capsule 1 cap PO DAILY aspirin [Aspir-Low] 81 mg tablet,delayed release (DR/EC) 81 mg PO DAILY PreserVision AREDS 7,160-113-100 bvfn-yy-bjlt tablet 1 tablet PO BID krill oil 500 mg capsule PO cholecalciferol (vitamin D3) 50 mcg (2,000 unit) tablet 50 mcg PO DAILY Qty: 90 1RF levothyroxine 50 mcg tablet 50 mcg PO DAILY Qty: 90 2RF lisinopril 30 mg tablet 30 mg PO DAILY Qty: 90 2RF hydrochlorothiazide 25 mg tablet 25 mg PO DAILY Qty: 90 2RF Follow-up/Referrals: Sergio Hagen DO [Primary Care Provider] - Time of Disposition: 10:16
[2025-01-15 09:51] VITALS: BP 149/82; PULSE 83; RESP 16; TEMP 36.3; O2SAT 98
[2025-01-15 10:21] LABS: EDCOVIDSCREEN Negative (Negative); EDINFLUASCREEN Negative (Negative); EDINFLUBSCREEN Negative (Negative); EDSTREPNEGPOS1 Negative (Negative)
== END 2025-01-15 10:20 | disposition home or self-care (01) ==
PROVIDERS: Emergency Provider Nurse Practitioner Family; PCP Internal Medicine
DX: J40 Bronchitis, not specified as acute or chronic (principal); E78.5 Hyperlipidemia, unspecified; I10 Essential (primary) hypertension; Z87.891 Personal history of nicotine dependence; Z20.822 Contact with and (suspected) exposure to COVID-19
CPT/HCPCS: 87426; 87804; 87880; 99213; G0463

== ENCOUNTER 2025-01-19 09:33 | Outpatient (CLI) | payer MEDICARE, SELFPAY ==
--- OUTSIDE RECORDS SUMMARY | 2025-01-19 09:36 | XMS_ITS | Encounter Summary ---
Author Organization [facility] Address [address] [place] [address] Care Team Providers Care Degreasing Solution Reclaimer Name Role Phone Unavailable Primary Care Provider Unavailabl e Encounter Details Date Type Department Care Team (Late st Contact Info) Description 05/31/2022 Lab Requisition [facility] DermPath Lab [address] [place] [id number] Zachariah Jackson MD [address] [place] [address] Social History Tobacco Use Types Packs/Day Years Used Date Smoking Tobacco: Never Assessed Comments Unknown Sex and Gender Information Value Date Recorded Sex Assigned at Not on file Legal Sex Female 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 Gender Identity Not on file Sexual Orientation Not on file documented as of this encounter Plan of Treatment Not on file documented as of this encounter Procedures Procedure Name Priority Date/Time Associated Diagnosis Comments DERMATOPATHOLOGY Routine 05/30/2022 12:0 0 AM MANUFACTURING INSPECTOR documented in this encounter Results * DERMATOPATHOLOGY (05/30/2022 12:00 AM MANUFACTURING INSPECTOR) Case Report Dermatopathology Report Case: [id number] Authorizing Provider: Zachariah Jackson MD Collected: 05/30/2022 12:00 AM Ordering Location: [facility] DermPath Lab Received: 05/31/2022 04:03 PM Pathologist: Court Brink MD Specimen: Skin, left ant mandibular 3:16 PM MANUFACTURING INSPECTOR DERMATOPATHOLOGY LABORATORY Final Diagnosis Specimen A. SKIN, left ant mandibular: BASAL CELL CARCINOMA, NODULAR TYPE (C44.319) 3:16 PM MANUFACTURING INSPECTOR DERMATOPATHOLOGY LABORATORY at 1516 MANUFACTURING INSPECTOR Clinical History Papule r/o BCC 2 3:16 PM MANUFACTURING INSPECTOR DERMATOPATHOLOGY LABORATORY Gross Description Specimen A: Received is one formalin filled container labeled with the patient's name and designated left ant mandibular. The specimen consists of a shave biopsy measuring 4x3x2 mm. Jar 0. 2 3:16 PM [facility] DERMATOPATHOLOGY LABORATORY Microscopic Description Specimen A. SKIN, left ant mandibular: Within the dermis there are aggregates of basaloid cells with a high nuclear to cytoplasmic ratio and peripheral palisading. 2 3:16 PM MANUFACTURING INSPECTOR DERMATOPATHOLOGY LABORATORY Disclaimer An external and internal positive and negative controls are appropriate for the histochemical, immunohistochemical and immunofluorescence stain(s) in this case (if any), except where stated explicitly. The performance characteristics of the stain(s) cited in this report were developed and its performance characteristic determined by the Dermatopathology Laboratory at [facility], directed by Dr. Dominic Orellana. These tests need not be, and therefore are not, approved by the [place] Food and Drug Administration. The tests are used for clinical purposes. Billing Codes Specimen Charges Stain Charges 89692 1 2 3:16 PM MANUFACTURING INSPECTOR DERMATOPATHOLOGY LABORATORY Embedded Images 2 3:16 PM MANUFACTURING INSPECTOR DERMATOPATHOLOGY LABORATORY Pathology/Cytolog y TISSUE SPECIMEN FROM SKIN / Unknown 05/30/2022 05/31/2022 4:03 PM MANUFACTURING INSPECTOR Zachariah Jackson MD LAB - PATHOLOGY/CYTOLOGY ORDERAB LES Final Result DERMATOPATHOLOGY LABORATORY [facility] - Department of Dermatology [facility] Medicine [address] [place] [address], [address] [place] [address], [facility] [phone] documented in this encounter Visit Diagnoses Not on filedocumented in this encounter
--- OUTSIDE RECORDS SUMMARY | 2025-01-19 09:36 | XMS_ITS | Encounter Summary ---
Author Organization [facility] Address [address] [place] [address] Care Team Providers Care Knee Bolter Name Role Phone Unavailable Primary Care Provider Unavailabl e Encounter Details Date Type Department Care Team (Late st Contact Info) Description 06/21/2022 Lab Requisition [facility] DermPath Lab [address] [place] [phone] Zachariah Jackson MD [address] [place] [address] Social History Tobacco Use Types Packs/Day Years Used Date Smoking Tobacco: Never Assessed Comments Unknown Sex and Gender Information Value Date Recorded Sex Assigned at Not on file Legal Sex Female 9:14 AM DEPOSIT REFUND CLERK Gender Identity Not on file Sexual Orientation Not on file documented as of this encounter Plan of Treatment Not on file documented as of this encounter Procedures Procedure Name Priority Date/Time Associated Diagnosis Comments DERMATOPATHOLOGY Routine 06/21/2022 12:0 0 AM DEPOSIT REFUND CLERK documented in this encounter Results * DERMATOPATHOLOGY (06/21/2022 12:00 AM DEPOSIT REFUND CLERK) Case Report Dermatopathology Report Case: [id number] Authorizing Provider: Zachariah Jackson MD Collected: 06/21/2022 12:00 AM Ordering Location: [facility] DermPath Lab Received: 06/21/2022 04:32 PM Pathologist: Court Brink MD Specimen: Skin, left ant mandibular 2 2:39 PM DEPOSIT REFUND CLERK DERMATOPATHOLOGY LABORATORY Final Diagnosis Specimen A. SKIN, left ant mandibular: DERMAL SCAR RESIDUAL BASAL CELL CARCINOMA NOT IDENTIFIED (L90.5) 2 2:39 PM DEPOSIT REFUND CLERK DERMATOPATHOLOGY LABORATORY at 1439 DEPOSIT REFUND CLERK Clinical History BCC bx site 2 2:39 PM DEPOSIT REFUND CLERK DERMATOPATHOLOGY LABORATORY Gross Description Specimen A: Received [...] cassette 2-3. Jar 0. 2 2:39 PM [facility] DERMATOPATHOLOGY LABORATORY Microscopic Description Specimen A. SKIN, left ant mandibular: There are fibroblasts and collagen bundles oriented parallel to the skin surface. There are elongated blood vessels, some of which are oriented perpendicular to the skin surface. No basal cell carcinoma is identified. 2 2:39 PM DEPOSIT REFUND CLERK DERMATOPATHOLOGY LABORATORY Disclaimer An external and internal positive and negative controls are appropriate for the histochemical, immunohistochemical and immunofluorescence stain(s) in this case (if any), except where stated explicitly. The performance characteristics of the stain(s) cited in this report were developed and its performance characteristic determined by the Dermatopathology Laboratory at [facility], directed by Dr. Dominic Orellana. These tests need not be, and therefore are not, approved by the [place] Food and Drug Administration. The tests are used for clinical purposes. Billing Codes Specimen Charges Stain Charges 89211 1 2 2:39 PM DEPOSIT REFUND CLERK DERMATOPATHOLOGY LABORATORY Embedded Images 2 2:39 PM DEPOSIT REFUND CLERK DERMATOPATHOLOGY LABORATORY Pathology/Cytolog y TISSUE SPECIMEN FROM SKIN / Unknown 06/21/2022 06/21/2022 4:32 PM DEPOSIT REFUND CLERK us Zachariah Jackson MD LAB - PATHOLOGY/CYTOLOGY ORDERAB LES Final Result DERMATOPATHOLOGY LABORATORY [facility] - Department of Dermatology [address], [address] [place] [address], [facility] [phone] documented in this encounter Visit Diagnoses Not on filedocumented in this encounter
--- OUTSIDE RECORDS SUMMARY | 2025-01-19 09:37 | XMS_ITS | Continuity of Care Document ---
Author Organization [facility] Address [address] [place] [address] [place] [address] Phone Care Team Providers Care Customer Associate Name Role Phone Alvin Bravo Unavailable Unavailable Procedures Procedure Date Eye Exam, New Patient Dilated Macular Exam Performed 10 Counseling For Antioxidant Supplements O Refraction Advance Directives Directive Yes / No Effective Date File Name No Information Encounters Encounter Description Practice Location Reason(s) For Visit Diagnoses Date Provider Providers Copied on Encounter [facility], [address], [place], [place], [id number], [place] tel:[phone] [facility] No Information [phone] Megsy Edward. [address] , [address], [place], [address], [place]. tel:[phone] Family History Family Member Type Diagnosis Age At Onset No Information Payers Payer name Insurance type Covered alliance party ID Authoriza tion(s) Medicare [facility] [id number] [facility] Commercial [place] [id number] Social History Type Description Quantity Date Captured [...]
--- OUTSIDE RECORDS SUMMARY | 2025-01-19 09:37 | XMS_ITS | Clinical Summary ---
Author Organization [facility] Address [address] [place] [address] Care Team Providers Care Imaging Assistant Name Role Phone Unavailable Primary Care Provider Unavailabl e Source Comments [email or web address],non-owned Affiliates and Associated Physician Practices is amultiple site organization consisting of ambulatory clinics and hospital sitesin [place] and [place]. This disclosure is being madepursuant to the Care Everywhere program and may not contain all information available regarding this patient. Last updated 18.[id number] Social History Tobacco Use Types Packs/Day Years Used Date Smoking Tobacco: Never Assessed Comments Unknown Sex and Gender Information Value Date Recorded Sex Assigned at Not on file Legal Sex Female 9:14 AM HIDE WASHER Gender Identity Not on file Sexual Orientation [...] MEDICARE AWV CALENDAR YEAR 2024 INFLUENZA VACCINE (#1) 2025 HEPATITIS B VACCINE Aged Out No [...]
--- OUTSIDE RECORDS SUMMARY | 2025-01-19 09:37 | XMS_ITS | Encounter Summary ---
Author Organization [facility] Address [address] [place] [address] Care Team Providers Care Alterations Expert Name Role Phone Unavailable Primary Care Provider Unavailabl e Encounter Details Date Type Department Care Team (Late st Contact Info) Description 11/23/2022 Lab Requisition [facility] - DermPath Lab [address] [place] [phone] Zachariah Jackson MD [address] [place] [address] Social History Tobacco Use Types Packs/Day Years Used Date Smoking Tobacco: Never Assessed Comments Unknown Sex and Gender Information Value Date Recorded Sex Assigned at Not on file Legal Sex Female 9:14 AM GYNECOLOGIST Gender Identity Not on file Sexual Orientation Not on file documented as of this encounter Plan of Treatment Not on file documented as of this encounter Procedures Procedure Name Priority Date/Time Associated Diagnosis Comments DERMATOPATHOLOGY Routine 11/21/2022 12:0 0 AM CDT documented in this encounter Results * DERMATOPATHOLOGY (11/21/2022 12:00 AM CDT) Case Report Dermatopathology Report Case: [id number] Authorizing Provider: Zachariah Jackson MD Collected: 11/21/2022 12:00 AM Ordering Location: [facility] Lab Received: 11/23/2022 08:53 AM Pathologist: [...] characteristic determined by the Dermatopathology Laboratory at [facility], directed by Dr. Dominic Orellana. These tests need not be, and therefore are not, approved by the [place] Food and Drug Administration. The tests are used for clinical purposes. Billing Codes Specimen Charges Stain Charges 48267 19712 1 1 3 5:48 PM CDT DERMATOPATHOLOGY LABORATORY Embedded Images 3 5:48 PM CDT DERMATOPATHOLOGY LABORATORY Pathology/Cytology TISSUE SPECIMEN FROM SKIN / Unknown 11/21/2022 11/23/2022 8:53 AM CDT Miscellaneous samples (specimen) TISSUE SPECIMEN FROM SKIN / Unknown 11/21/2022 11/23/2022 8:53 AM CDT Zachariah Jackson MD LAB - PATHOLOGY/CYTOLOGY ORDERAB LES Final Result DERMATOPATHOLOGY LABORATORY [facility] - Department of Dermatology [facility] Medicine [address] [place] [address], [address] [phone] documented in this encounter Visit Diagnoses Not on filedocumented in this encounter
--- OUTSIDE RECORDS SUMMARY | 2025-01-19 09:37 | XMS_ITS | Data Portability ---
Author Organization [facility] Address [address] [place] [address] Assessment No assessment recorded. Plan of Treatment [...] By Organization Details Last Modified Time 06/10/2024 [id number] drink 72oz water daily [email or web address] Not available 06/10/2024 20:39:16 Patient Instructions Encounter Date Encounter Id Patient Instructions Last Modified By Organization Details Last Modified Time 06/10/2024 [id number] When You Want to Lose Weight: Care [...] Address Organization Details Recorded Time Essential hypertension [id number] Active 2023 Breanne Centeno null, [facility] 4 13:30:35 Obese [id number] Active 2023 Jonathan Iraheta, [address], [address], [address], [facility] 4 20:36:08 Hypothyroidi 25967962 Active 2023 Jonathan Iraheta DO [address] [facility], [place] [address], [place], [address], [facility] 4 20:37:24 Vitamin D deficiency 32722537 Active 2023 Jonathan Iraheta, DO [address] [place] [address], [place] [address], [place], [address], [facility] 4 20:37:34 Osteopenia 245512803 Active 2023 Jonathan Mccormick Ravioscar, DO [address] [place] [address], [place] [address], [place], [address], [facility] 4 20:38:28 Chronic low back pain 612101190 Active 2023 Jonathan Mccormick Ravioscar, [address], [place] [address], [place], [address], [facility] 4 20:38:39 Problem Notes None recorded. Procedures Surgical History Date Name Laterality Status Provider Name and Address Organization Details Recorded Time 4 HEDIS - AWV - MEDICATION - LIST IN MEDICAL RECORDS REVIEWED - G8427 [facility] 06/10/2024 13:34:03 4 HEDIS - REVIEW OF MEDICATION DOCU IN MED REC - Medicare - G8427 [facility] 06/10/2024 13:34:04 4 HEDIS - AWV - PHQ9 Discussion Mental Health Issues / Depression Negative - G8510 [facility] 06/10/2024 13:34:12 4 HEDIS - BMI High - Must Have Plan of Care - Medicare - G8417 [facility] 06/10/2024 13:34:01 4 HEDIS - AWV - ADVANCED DIRECTIVE DISCUSSED & DOCUMENTED IN MED REC 63 YRS - 1158F completed [facility] 06/10/2024 13:34:56 4 HEDIS Tobacco Screening Negative for Smoking - 1036F completed [facility] 06/10/2024 13:33:59 4 HEDIS - AWV - Smoking Cessation Counseling Documented - 4000f completed [facility] 06/10/2024 13:34:14 2 Most Recent Mammogram completed Breannekae Centeno [facility] 06/10/2024 13:32:47 2 Colonoscopy completed Breanne Centeno [facility] 06/10/2024 13:31:55 Cataract Surgery completed Breannekae Centeno [facility] 06/10/2024 13:31:32 Imaging Results None recorded. Procedure [...] Pulse oximetry Heart rate Body temperature Systolic And Diastolic Systolic And Diastolic Provider Name and Address Organization Details Last Updated DateTime 4 72152.8 1 g 32.2 kg/m2 160.02 cm 16 /min 98 % 98 % 75 /min 97.7 [degF] 163/76 mm[Hg] 153/89 mm[Hg] Breanne Centeno [facility] 4 13:37:09 Social History Question Answer Notes LastModified by Organizat ion Details LastModified Time Tobacco Smoking Status Never Smoker Breanne Centeno [facility] 06/10/2024 13:31:25 Do You Have An Advance Directive? Yes [email or web address] Information not available 06/10/2024 How Many Years Have You Consumed Alcohol? 45 [email or web address] Information not available 06/10/2024 Is Blood Transfusion Acceptable In An Emergency? Yes [email or web address] Information not available 06/10/2024 What Is Your Level Of Caffeine Consumption? Occasional [email or web address] Information not available 06/10/2024 What Is Your Code Status? DNR [email or web address] Information not available 06/10/2024 Do You Have A Directive To Physicians? No [email or web address] Information not available 06/10/2024 Do You Have A Medical Power Of Shift Coordinator? Yes Information not available 06/10/2024 What Was The Date Of Your Most Recent Tobacco Screening? 06/10/2024 [email or web address] Information not available 06/10/2024 Do You Have An Out Of Hospital DNR? No [email or web address] Information not available 06/10/2024 Has Tobacco Cessation Counseling Been Provided? No [email or web address] Information not available 06/10/2024 Sex: Female Functional Status Question Answer Note LastModified by Organizat ion Details LastModified Time Do you use any illicit or recreational drugs? No [email or web address] Information not available 06/10/2024 Do you or have you ever used any other forms of tobacco or nicotine? No [email or web address] Information not available 06/10/2024 What is your level of alcohol consumption? Occasional [email or web address] Information not available 06/10/2024 Mental Status None recorded. Family History Relationship Description Onset Age of this Age Resolved Age Notes LastModified by Organization Details LastModified Time Father No current problems or disability [email or web address] Not available 06/10 13:30:37 Mother No current problems or disability [email or web address] Not available 06/10 13:30:37 Medical History Condition Response Aneurysm/stroke N Coronary Artery Disease N Gout N Kidney Stones N Hyperthyroidism N Breast Cancer N Lung Cancer N Hypothyroidism N Depression N COPD N Defects or Inherited Disease N Pacemaker N Difficulty Swallowing N Anxiety Disorder N Meniere's disease N Obesity N Arthritis N Mental Disorder N Cancer N Stroke N Chronic Fatigue N Endometriosis N Bladder or Kidney Problems N High Cholesterol N Liver Disease N Fibromyalgia N Kidney Disease N Heart Problems N Migraines N Anemia N MRSA exposure N Heart Attack ([place]) N Diabetes N Bleeding Disorder N Seizures/Epilepsy N Tuberculosis N AIDS/HIV N Congestive Heart Failure (CHF) N Chronic Pain N Abuse/Domestic Violence N Diverticulitis N Asthma N Substance Abuse N Peripheral Vascular Disease N Reflux/GERD N Heart Disease N Pulmonary Embolism N Chronic Ear Infections N Hypertension Y Osteoporosis N Gynecological History [...] adjuvanted, quadrivalent, PF 03/29/2021 completed Breanne Centeno null, [facility] 06/10/2024 13:22:03 COVID-19, mRNA, LNP-S, PF, 100 mcg/0.5mL dose or 50 mcg/0.25mL dose 08/04/2020 completed Breanne Centeno null, [facility] 06/10/2024 13:22:03 COVID-19, mRNA, LNP-S, PF, 100 mcg/0.5mL dose or 50 mcg/0.25mL dose 09/06/2020 completed Breanne Centeno null, [facility] 06/10/2024 13:22:03 COVID-19, mRNA, LNP-S, PF, 100 mcg/0.5mL dose or 50 mcg/0.25mL dose 10/03/2021 completed Breanne Centeno null, [facility] 06/10/2024 13:22:03 COVID-19, mRNA, LNP-S, PF, 100 mcg/0.5mL dose or 50 mcg/0.25mL dose 04/27/2021 [facility] 13:22:03 COVID-19, mRNA, LNP-S, bivalent, PF, 50 mcg/0.5 mL or 25mcg/0.25 mL dose 04/13/2022 completed Breanne Centeno null, [facility] 06/10/2024 13:22:03 RSV, recombinant, protein subunit RSVpreF, adjuvant reconstituted, 0.5 mL, PF 05/02/2023 [facility] 13:22:03 COVID-19, mRNA, LNP-S, PF, 50 mcg/0.5 mL 09/11/2023 [facility] 13:22:03 Past Encounters Encounter ID Performer Location Encounter Start Date Encounter Closed Date Diagnosis/Indication Diagnosis SNOMED-CT Code Diagnosis ICD10 Code Diagnosis Note [id number] Jonathan Iraheta DO [facility] [address] [place] [address] 06/10/2024 12:50:10 06/10/2024 14:04:33 Obese 671349559 E66.9 32.2 Patient ne w to provider [id number] 61901 Z76.89 Med reconcilia tion completedR eviewed medical, family, social and surgical historyRev iew of records, labs, imaging done and discussed with pt as available and appropriat eDiscussed e/m chronic conditions Discussed age appropriat e screenings and immunizati ons Hypothyroidism 67259273 E03.9 continue sameasked pt to request lab records from PCP Essential hypertension 98275607 I10 continue samegoal <140/90 Vitamin D deficiency 347 18690 E55.9 continue same Osteopenia 716955748 M85 .80 pt reports as seen on dxa previously Chronic low back pain 27 5515728 M54.50 on and off, intermitte ntlocated aroudn [...] ID Guarantor Name 06/19/2024 MEDICARE A-[place]: NATIONAL [employer]MENT SERVICES - [facility] [id number] 1 Sadaf A Merlene [id number] Sadaf Merlene 06/10/2024 1 [employer] (MEDICARE REPLACEMENT/A DVANTAGE - PPO) [id number] Sadaf A Merlene [id number] Sadaf Merlene Notes Date Note Type Note Provider Name and Address Organization Details Recorded Time 06/10/2024 text/html Generic HPI TemplateReported bypatient.Notes:New patientSnow bird - 6 months in [place], 6 months Marce PCP in [place] who handles her medications, lab work - [...] Impairment Vision Impairment Emotional Barriers Physical Problems Rastafari Beliefs Low Literacy Learning Problems Disinterested Preferred Teaching Method: X Handout X Discussion Class Video (if available) Demonstration Comments: Jonathan Iraheta, DO [address] [place] [address], [address], [address], [facility] 06/10/2024 20:40:00 OBGyn Episode No OBEpisode recorded.
--- NOTE | 2025-01-19 11:00 | NEURO_ITS ---
Impression: # History of Dupuytren?s Contracture . ? # Mild evolving Carpal Tunnel Syndrome and ulnar neuropathy. . ? # Needle/EMG exam revealed mild motor unit potentials but no neurogenic changes. ? # Clinical correlation recommended. Nerve Conduction Studies ?Stim Site NR Peak (ms) P-T Amp (?V) Site1 Site2 Delta-P (ms) Dist (cm) Vazquez (m/s) Left Median Anti Sensory (2-3nd Digit) Wrist ? 3.6 35.4 Wrist 2-3nd Digit 3.6 14.0 39 Wrist ? 3.8 31.5 Wrist 2-3nd Digit 3.6 14.0 39 Right Median Anti Sensory (2-3nd Digit) Wrist ? 3.7 40.1 Wrist 2-3nd Digit 3.7 14.0 38 Wrist ? 4.1 26.4 Wrist 2-3nd Digit 3.7 14.0 38 Left Radial Anti Sensory (Base 1st Digit) Wrist ? 2.2 41.0 Wrist Base 1st Digit 2.2 0.0 Right Radial Anti Sensory (Base 1st Digit) Wrist ? 2.8 21.2 Wrist Base 1st Digit 2.8 0.0 Left Ulnar Anti Sensory (5th Digit) Wrist ? 2.6 49.1 Wrist 5th Digit 2.6 14.0 54 Right Ulnar Anti Sensory (5th Digit) Wrist ? 2.7 43.8 Wrist 5th Digit 2.7 14.0 52 ?Stim Site NR Onset (ms) O-P Amp (mV) Site1 Site2 Delta-0 (ms) Dist (cm) Vazquez (m/s) Left Median Motor (Abd Poll Brev) Wrist ? 4.1 1.8 Elbow Wrist 5.6 30.0 54 Elbow ? 9.7 2.3 Right Median Motor (Abd Poll Brev) Wrist ? 4.3 2.7 Elbow Wrist 5.2 26.0 50 Elbow ? 9.5 2.7 Left Ulnar Motor (Abd Dig Minimi) Wrist ? 2.3 5.8 A Elbow Wrist 5.7 27.0 47 A Elbow ? 8.0 5.0 B Elbow Wrist 3.9 21.0 54 B Elbow ? 6.2 3.7 Right Ulnar Motor (Abd Dig Minimi) Wrist ? 2.6 1.8 A Elbow Wrist 5.8 28.0 48 A Elbow ? 8.4 1.5 B Elbow Wrist 3.7 19.0 51 B Elbow ? 6.3 1.4 Electromyography ?Side Muscle Nerve Root Ins Act Fibs Amp Dur Recrt Comment Right 1stDorInt Ulnar C8-T1 Nml Nml Nml Nml +1 Right Ext Indicis Radial (Post Int) C7-8 Nml Nml Nml Nml Nml Right Ext Digitorum Radial (Post Int) C7-8 Nml Nml Nml Nml Nml Right BrachioRad Radial C5-6 Nml Nml Nml Nml Nml Right PronatorTeres Median C6-7 Nml Nml Nml Nml Nml Right Abd Poll Brev Median C8-T1 Nml Nml Nml Nml +1 Right ABD Dig Min Ulnar C8-T1 Nml Nml Nml Nml +1 Right FlexPolLong Median (Ant Int) C7-8 Nml Nml Nml Nml Nml Right Abd Poll Long Radial (Post Int) C7-8 Nml Nml Nml Nml Nml Left 1stDorInt Ulnar C8-T1 Nml Nml Nml Nml +1 Left Ext Indicis Radial (Post Int) C7-8 Nml Nml Nml Nml Nml Left Ext Digitorum Radial (Post Int) C7-8 Nml Nml Nml Nml Nml Left BrachioRad Radial C5-6 Nml Nml Nml Nml Nml Left PronatorTeres Median C6-7 Nml Nml Nml Nml Nml Left Abd Poll Brev Median C8-T1 Nml Nml Nml Nml +1 Left ABD Dig Min Ulnar C8-T1 Nml Nml Nml Nml +1 Left FlexPolLong Median (Ant Int) C7-8 Nml Nml Nml Nml Nml Left Abd Poll Long Radial (Post Int) C7-8 Nml Nml Nml Nml Nml
== END 2025-01-19 09:34 | disposition home or self-care (01) ==
PROVIDERS: PCP Internal Medicine; Visit Provider Plastic Surgery
DX: G56.03 Carpal tunnel syndrome, bilateral upper limbs (principal)
CPT/HCPCS: 95886; 95911

== ENCOUNTER 2025-03-06 10:05 | Outpatient (CLI) | payer MEDICARE, SELFPAY ==
--- OUTSIDE RECORDS SUMMARY | 2010-04-06 04:45 | XMS_ITS | Continuity of Care Document ---
Author Organization [facility] Address [address] [place] [address] [place] [address] Phone Care Team Providers Care Associate Automation Engineer Name Role Phone Alvin Bravo Unavailable Unavailable Procedures Procedure Date Eye Exam, New Patient Dilated Macular Exam Performed 10 Counseling For Antioxidant Supplements O Refraction Advance Directives Directive Yes / No Effective Date File Name No Information Encounters Encounter Description Practice Location Reason(s) For Visit Diagnoses Date Provider Providers Copied on Encounter [facility], [address], [place], [place], [id number], [place] tel:[phone] [facility] No Information 6-201 0 Megsy Edward. [address] , [address], [place], [address], [place]. tel:[phone] Family History Family Member Type Diagnosis Age At Onset No Information Payers Payer name Insurance type Covered alliance party ID Authoriza tion(s) Medicare [facility] [id number] [facility] Commercial BL [id number] Social History Type Description Quantity Date Captured [...]
--- NOTE | 2025-03-06 10:16 | ECG_ITS ---
Test Date: 2025-03-06 10:23:00 Measurements Intervals [place] Rate: 67 P: 51 TN: 187 QRS: -33 QRSD: 98 T: 34 QT: 388 QTc: 411 Interpretive Statements SINUS RHYTHM WITH SINUS ARRHYTHMIA INDETERMINATE AXIS No previous ECG available for comparison Electronically Signed On 03-06-2025 12:41:11 CDT by Kalpesh Duffy M.D.
--- OUTSIDE RECORDS SUMMARY | 2025-03-06 10:23 | XMS_ITS | Clinical Summary ---
Author Organization [facility] Address [address] [place] [address] Care Team Providers Care Systems Program Manager Name Role Phone Unavailable Primary Care Provider Unavailabl e Source Comments [facility] [employer],non-owned Affiliates and Associated Physician Practices is amultiple site organization consisting of ambulatory clinics and hospital sitesin [place], [place], [place] and [place]. This disclosure is being madepursuant to the Care Everywhere program and may not contain all information available regarding this patient. Last updated 18.[facility] [employer] Social History Tobacco Use Types Packs/Day Years Used Date Smoking Tobacco: Never Assessed Comments Unknown Sex and Gender Information Value Date Recorded Sex Assigned at Not on file Legal Sex Female 9:14 AM PSYCHOLOGY FELLOW Gender Identity Not on file Sexual Orientation [...]
--- OUTSIDE RECORDS SUMMARY | 2025-03-06 10:23 | XMS_ITS | Encounter Summary ---
Author Organization [facility] Address [address] [place] [address] Care Team Providers Care Straw Baler Name Role Phone Unavailable Primary Care Provider Unavailabl e Encounter Details Date Type Department Care Team (Late st Contact Info) Description 11/23/2022 Lab Requisition [facility] - DermPath Lab [address] [place] [address] Zachariah Jackson MD [address] [place] [address] Social History Tobacco Use Types Packs/Day Years Used Date Smoking Tobacco: Never Assessed Comments Unknown Sex and Gender Information Value Date Recorded Sex Assigned at Not on file Legal Sex Female 9:14 AM CHIEF CLERK Gender Identity Not on file Sexual Orientation Not on file documented as of this encounter Plan of Treatment Not on file documented as of this encounter Procedures Procedure Name Priority Date/Time Associated Diagnosis Comments DERMATOPATHOLOGY Routine 11/21/2022 12:0 0 AM CDT documented in this encounter Results * DERMATOPATHOLOGY (11/21/2022 12:00 AM CDT) Case Report Dermatopathology Report Case: [id number] Authorizing Provider: Zachariah Jackson MD Collected: 11/21/2022 12:00 AM Ordering Location: [facility]erm[facility] Lab Received: 11/23/2022 08:53 AM Pathologist: [...] characteristic determined by the Dermatopathology Laboratory at [facility], directed by Dr. Dominic Orellana. These tests need not be, and therefore are not, approved by the [place] Food and Drug Administration. The tests are used for clinical purposes. Billing Codes Specimen Charges Stain Charges 38626 49568 1 1 3 5:48 PM CDT DERMATOPATHOLOGY LABORATORY Embedded Images 3 5:48 PM CDT DERMATOPATHOLOGY LABORATORY Pathology/Cytology TISSUE SPECIMEN FROM SKIN / Unknown 11/21/2022 11/23/2022 8:53 AM CDT Miscellaneous samples (specimen) TISSUE SPECIMEN FROM SKIN / Unknown 11/21/2022 11/23/2022 8:53 AM CDT Zachariah Jackson MD LAB - PATHOLOGY/CYTOLOGY ORDERAB LES Final Result DERMATOPATHOLOGY LABORATORY [facility] - Department of Dermatology [facility] Medicine [address] [place] [address], [address] [phone] documented in this encounter Visit Diagnoses Not on filedocumented in this encounter
--- OUTSIDE RECORDS SUMMARY | 2025-03-06 10:23 | XMS_ITS | Encounter Summary ---
Author Organization [facility] Address [address] [facility] [place] [address] Care Team Providers Care Ballistics Expert Name Role Phone Unavailable Primary Care Provider Unavailabl e Encounter Details Date Type Department Care Team (Late st Contact Info) Description 06/21/2022 Lab Requisition [facility] Derm[facility] Lab [address] [place] [phone] Zachariah Jackson MD [address] [place] [address] Social History Tobacco Use Types Packs/Day Years Used Date Smoking Tobacco: Never Assessed Comments Unknown Sex and Gender Information Value Date Recorded Sex Assigned at Not on file Legal Sex Female 9:14 AM JUNIOR PROJECT MANAGER Gender Identity Not on file Sexual Orientation Not on file documented as of this encounter Plan of Treatment Not on file documented as of this encounter Procedures Procedure Name Priority Date/Time Associated Diagnosis Comments DERMATOPATHOLOGY Routine 06/21/2022 12:0 0 AM JUNIOR PROJECT MANAGER documented in this encounter Results * DERMATOPATHOLOGY (06/21/2022 12:00 AM JUNIOR PROJECT MANAGER) Case Report Dermatopathology Report Case: [id number] Authorizing Provider: Zachariah Jackson MD Collected: 06/21/2022 12:00 AM Ordering Location: [facility] Derm[facility] Lab Received: 06/21/2022 04:32 PM Pathologist: Court Brink MD Specimen: Skin, left ant mandibular 2 2:39 PM JUNIOR PROJECT MANAGER DERMATOPATHOLOGY LABORATORY Final Diagnosis Specimen A. SKIN, left ant mandibular: DERMAL SCAR RESIDUAL BASAL CELL CARCINOMA NOT IDENTIFIED (L90.5) 2 2:39 PM JUNIOR PROJECT MANAGER DERMATOPATHOLOGY LABORATORY at 1439 JUNIOR PROJECT MANAGER Clinical History BCC bx site 2 2:39 PM JUNIOR PROJECT MANAGER DERMATOPATHOLOGY LABORATORY Gross Description Specimen A: Received [...] cassette 2-3. Jar 0. 2 2:39 PM [facility] DERMATOPATHOLOGY LABORATORY Microscopic Description Specimen A. SKIN, left ant mandibular: There are fibroblasts and collagen bundles oriented parallel to the skin surface. There are elongated blood vessels, some of which are oriented perpendicular to the skin surface. No basal cell carcinoma is identified. 2 2:39 PM JUNIOR PROJECT MANAGER DERMATOPATHOLOGY LABORATORY Disclaimer An external and internal positive and negative controls are appropriate for the histochemical, immunohistochemical and immunofluorescence stain(s) in this case (if any), except where stated explicitly. The performance characteristics of the stain(s) cited in this report were developed and its performance characteristic determined by the Dermatopathology Laboratory at [facility], directed by Dr. Dominic Orellana. These tests need not be, and therefore are not, approved by the [place] Food and Drug Administration. The tests are used for clinical purposes. Billing Codes Specimen Charges Stain Charges 19607 1 2 2:39 PM JUNIOR PROJECT MANAGER DERMATOPATHOLOGY LABORATORY Embedded Images 2 2:39 PM JUNIOR PROJECT MANAGER DERMATOPATHOLOGY LABORATORY Pathology/Cytolog y TISSUE SPECIMEN FROM SKIN / Unknown 06/21/2022 06/21/2022 4:32 PM JUNIOR PROJECT MANAGER us Zachariah Jackson MD LAB - PATHOLOGY/CYTOLOGY ORDERAB LES Final Result DERMATOPATHOLOGY LABORATORY [facility] - Department of Dermatology [address] [place] [address], [facility] [phone] documented in this encounter Visit Diagnoses Not on filedocumented in this encounter
--- OUTSIDE RECORDS SUMMARY | 2025-03-06 10:23 | XMS_ITS | Encounter Summary ---
Author Organization [facility] Address [address] [facility] [place] [address] Care Team Providers Care Talend Etl Developer Name Role Phone Unavailable Primary Care Provider Unavailabl e Encounter Details Date Type Department Care Team (Late st Contact Info) Description 05/31/2022 Lab Requisition [facility] DermPath Lab [address] [place] [phone] Zachariah Jackson MD [address] [place] [address] Social History Tobacco Use Types Packs/Day Years Used Date Smoking Tobacco: Never Assessed Comments Unknown Sex and Gender Information Value Date Recorded Sex Assigned at Not on file Legal Sex Female 9:14 AM PROGRAM DIRECTOR AIR TALENT Gender Identity Not on file Sexual Orientation Not on file documented as of this encounter Plan of Treatment Not on file documented as of this encounter Procedures Procedure Name Priority Date/Time Associated Diagnosis Comments DERMATOPATHOLOGY Routine 05/30/2022 12:0 0 AM PROGRAM DIRECTOR AIR TALENT documented in this encounter Results * DERMATOPATHOLOGY (05/30/2022 12:00 AM PROGRAM DIRECTOR AIR TALENT) Case Report Dermatopathology Report Case: [id number] Authorizing Provider: Zachariah Jackson MD Collected: 05/30/2022 12:00 AM Ordering Location: [facility] DermPath Lab Received: 05/31/2022 04:03 PM Pathologist: Court Brink MD Specimen: Skin, left ant mandibular 3:16 PM PROGRAM DIRECTOR AIR TALENT DERMATOPATHOLOGY LABORATORY Final Diagnosis Specimen A. SKIN, left ant mandibular: BASAL CELL CARCINOMA, NODULAR TYPE (C44.319) 3:16 PM PROGRAM DIRECTOR AIR TALENT DERMATOPATHOLOGY LABORATORY at 1516 PROGRAM DIRECTOR AIR TALENT Clinical History Papule r/o BCC 2 3:16 PM PROGRAM DIRECTOR AIR TALENT DERMATOPATHOLOGY LABORATORY Gross Description Specimen A: Received is one formalin filled container labeled with the patient's name and designated left ant mandibular. The specimen consists of a shave biopsy measuring 4x3x2 mm. Jar 0. 2 3:16 PM [facility] DERMATOPATHOLOGY LABORATORY Microscopic Description Specimen A. SKIN, left ant mandibular: Within the dermis there are aggregates of basaloid cells with a high nuclear to cytoplasmic ratio and peripheral palisading. 2 3:16 PM PROGRAM DIRECTOR AIR TALENT DERMATOPATHOLOGY LABORATORY Disclaimer An external and internal positive and negative controls are appropriate for the histochemical, immunohistochemical and immunofluorescence stain(s) in this case (if any), except where stated explicitly. The performance characteristics of the stain(s) cited in this report were developed and its performance characteristic determined by the Dermatopathology Laboratory at [facility], directed by Dr. Dominic Orellana. These tests need not be, and therefore are not, approved by the [place] Food and Drug Administration. The tests are used for clinical purposes. Billing Codes Specimen Charges Stain Charges 70319 1 2 3:16 PM PROGRAM DIRECTOR AIR TALENT DERMATOPATHOLOGY LABORATORY Embedded Images 2 3:16 PM PROGRAM DIRECTOR AIR TALENT DERMATOPATHOLOGY LABORATORY Pathology/Cytolog y TISSUE SPECIMEN FROM SKIN / Unknown 05/30/2022 05/31/2022 4:03 PM PROGRAM DIRECTOR AIR TALENT Zachariah Jackson MD LAB - PATHOLOGY/CYTOLOGY ORDERAB LES Final Result DERMATOPATHOLOGY LABORATORY [facility] - Department of Dermatology [facility] Medicine [address] [place] [address], [address] [place] [address], [facility] [phone] documented in this encounter Visit Diagnoses Not on filedocumented in this encounter
[2025-03-06 11:47] LABS: Anion Gap 3 mmol/L (4-12); Blood Urea Nitrogen 18 mg/dL (7-17); Calcium 9.4 mg/dL (8.4-10.2); Carbon Dioxide 35 mmol/L (22-30); Chloride 97 mmol/L (98-107); Estimated Glomerular Filt Rate > 60; Glucose 92 mg/dL (65-110); Potassium 4.0 mmol/L (3.4-5.0); Sodium 135 mmol/L (137-145)
== END 2025-03-06 10:06 | disposition home or self-care (01) ==
PROVIDERS: PCP Internal Medicine; Visit Provider Anesthesiology
DX: Z01.818 Encounter for other preprocedural examination (principal); I10 Essential (primary) hypertension; E78.5 Hyperlipidemia, unspecified
CPT/HCPCS: 36415; 80048; 93005

== ENCOUNTER 2025-03-12 06:04 | Day surgery (SDC) | payer MEDICARE, SELFPAY ==
[2025-03-04 14:07] VITALS: BMI 32.8
--- NOTE | 2025-03-12 06:28 | WPDHPUPDATE1 ---
History and Physical Update Update Date/Time: 03/12/25 06:28 Patient seen and examined in pre-operative holding area. No interval change in medical history or symptoms. Patient recalls previous discussion of benefits and alternatives to procedure. Continues to desire to proceed with right small and ring finger fasciectomy, right endoscopic possible open carpal tunnel release and right cubital tunnel release. Reviewed procedure, post-op expectations and risks including but not limited to bleeding, infection, injury to tendon/nerve/vessel, decreased hand function, stiffness, RSD, no change or worsening of symptoms, recurrence, incomplete release. I discussed the possible use of assistants and their participation in the case. Patient stated understanding and signed the consent form wishing to proceed.
--- NOTE | 2025-03-12 06:29 | W.PM.PROC2 ---
Procedure Note - Detailed Date of Procedure 03/12/25 Pre-op Diagnosis Dupuytren's Contracture RT. Small and Ring Finger, right CTS and R CuTS Post-op Diagnosis Same Procedure Performed right ectr, CuTR and small and ring finger fasciectomy Surgeon Rose Jose MD Anesthesia MAC Description of Procedure INFORMED CONSENT: The patient was seen and examined and marked in the pre-op area.? The patient signed the consent form. PROCEDURE IN DETAIL:The patient taken back to OR on the stretcher in supine position. Time out performed with anesthesia, surgeon and staff agreeing on patient's name site and surgery to be performed SCDs were placed on the lower extremities and inflated. A tourniquet was placed on {right} upper extremity and antibiotics given IV After anesthesia administered sedation I injected {10}cc 1%lido with epi and 0.5% marcaine plain at the operative sites The?{right upper extremity}?was prepped and draped in sterile fashion the??{right upper extremity} was? exsanguinated with Esmarch bandage and tourniquet inflated to 250mmHg I made a transverse incision in the {right} volar distal wrist crease through skin and dermis with 15 blade scalpel.? Littler scissors spread down to antebrachial fascia. A small incision was made in antebrachial fascia allowing access to Carpal tunnel. I proceeded with sequential dilation staying in line with the ring finger and hugging the hook of the hamate.? I then used the synovial elevator to free any adhesions from the underside of the transverse carpal ligament. Next I was able to insert the Microaire endoscopic carpal tunnel device with direct visualization of the transverse fibers on the monitor and proceeded with complete segmental retrograde release of the ligament in its entirety.? I irrigated with normal saline and closed with 4-0 monocryl for dermis and subcuticular closure. I next proceeded with making a longitudinal incision between two heads for flexor carpi ulnaris at end of {right} cubital tunnel with 15 blade scalpel.? Littler scissors were used to spread down to FCU fascia.? An incision was made in FCU fascia and ulnar nerve identified exiting cubital tunnel.? I proceeded with complete retrograde release of the cubital tunnel including 7cm proximal for the intermuscular septum.? The nerve appeared healthy with visible vaso nervorum.? There was no subluxation on full elbow range of motion. ? I irrigated with normal saline and closure with 4-0 monocryl for dermis and subcuticular. Next, I proceeded with making a layo-style incision over the right small finger cord from the MP joint flexion crease going distally across the PIP joint. I elevated skin flaps in subcutaneous plane. I identified the origin of the cord proximally and circumferentially dissected around. The cord was transected and I proceeded with anterograde dissection of the cord until I was able to achieve full extension of the PIP joint. The neurovascular bundles were identified and protected throughout the procedure. I irrigated with normal saline and closed with 4-0 chromic. Next I took my attention to the right ring finger where I made a Layo style incision over the central cord from the MP joint flexion crease going across the PIP joint flexion crease through skin and dermis with a 15 blade scalpel. Littler scissors were used to spread through subcutaneous tissue and I identified the cord near its origin proximally and proceeded with circumferential dissection around this cord. I transected the cord proximally and then proceeded with anterograde dissection of the cord toward the PIP joint until I was able to achieve full extension of the PIP joint. I irrigated with normal saline and closed with 4-0 chromic. The wrist and elbow incisions were covered with Dermabond and xeroform for fasciectomy incisions then 4x4s, bebeto, and a posterior elbow and ulnnar gutter splint in straight position for patient safety, security and comfort and secured with rosalie bandages after the tourniquet was let down noting the hand was warm and well perfused.? Patient awaken from anesthesia and transferred to recovery in stable condition. Complications - none EBL- 1cc Disposition - home in stable condition [facility] [place] Billing Surgery - Charge Forward: Surgery Billing ([id number])
[2025-03-12 06:32] VITALS: BP 133/82; PULSE 72; RESP 18; TEMP 36.6; O2SAT 95
--- NOTE | 2025-03-12 06:37 | P.PNAN_ITS ---
Anes - Initial Pre Proc Eval Procedure: Operation Date: 03/12/25 07:00 Proposed Procedures p Fasciectomy Right Small and Ring Finger - Rose Jose MD s Right Endoscopic Carpal Tunnel Release, Possible Open Carpal Tunnel Release - Rose Jose MD s Right Cubital Tunnel Release - Rose oJse MD Date/Time: 03/12/25 06:37 Surgeon: Rose Jose MD Pre Op Diagnosis: Dupuytren's Contracture RT. Small and Ring Finger Patient Data Age: 79 Gender: F Height: 16.15 m Weight: 84.9 kg Last Vital Signs Temp 36.6 C 03/12/25 06:32 Pulse 72 03/12/25 06:32 Resp 18 03/12/25 06:32 BP 133/82 03/12/25 06:32 Pulse Ox 95 03/12/25 06:32 O2 Del Method Room Air 03/12/25 06:32 Allergies Allergy/AdvReac Type Severity Reaction Status Date / Time No Known Allergies Allergy Verified 03/12/25 06:18 Home Medications ?Medication ?Instructions ?Recorded ?Confirmed ?Type aspirin 81 mg tablet,delayed 81 mg PO DAILY 06/17/19 0 03/12/25 History release (Aspir-Low) calcium carbonate 1,500 mg PO DAILY 06/17/19 0 03/12/25 History multivitamin 1 cap PO DAILY 06/17/1903/02 History vitamins A,C,K-bonx-njnwye 2,148 1 tablet PO BID 06/2003/12/25 History mcg-113 mg-45 mg-17.4 mg tablet (PreserVision AREDS) cholecalciferol (vitamin D3) 50 50 mcg PO DAILY #90 ta bs 12/22/19 03/12/25 Rx mcg (2,000 unit) tablet levothyroxine 50 mcg tablet 50 mcg PO DAILY #90 tabs 0 11/13/24 03/12/25 Rx krill oil 500 mg capsule 500 mg PO DAILY 11/14/2405/26 History hydrochlorothiazide 25 mg tablet 25 mg PO DAILY #90 ta bs 12/02/24 03/12/25 Rx lisinopril 30 mg tablet 30 mg PO DAILY #90 tabs 09/2303/12/25 Rx albuterol sulfate 90 mcg/actuation 2 puff inhalation Q ID PRN 01/15/25 03/12/25 Rx aerosol inhaler (Ventolin HFA) shortness of breath or wheezing #6.7 grams Patient hx anesthesia problems: post op nausea/vomiting Family hx anesthesia problems: none Results Review: All pre-operative results and documents have been reviewed as part of the pre- operative evaluation. [facility] Past Medical History Medical History BMI 32.0-32.9,adult Left groin pain Personal history of nicotine dependence Abnormal thyroid blood test Hyperlipidemia Benign essential hypertension Body mass index (bmi) 31.0-31.9, adult (12/23/18) Obesity, unspecified (05/18/16) Hypertension Age related osteoporosis Surgical History Surgical History Status post kyphoplasty L1 History of hand surgery Family History Family History Grandparent Family history of osteoporosis Family history of cardiovascular disease Cerebrovascular accident Mother Family history of osteoporosis Family history of malignant neoplasm of kidney Father Family history of chronic obstructive pulmonary disease, Onset Age: 82 Sibling Family history of lung cancer Family history of malignant neoplasm of brain Other Family history of coronary artery disease Social History Social History Smoking packs per day: 1 Smoking cigarettes per day: 20.0 Years smoked: 40 Smoking pack-years: 40.00 Smoking status: Former smoker Tobacco type: cigarettes Second hand tobacco smoke exposure: Yes Alcohol intake: current Drinks per week: 3 Alcohol use details: WINE Substance use: never Substance use type: does not use Do You Feel Safe in your Home?: Yes Lack of Transportation: No Lack of Food: Never True Current Housing: I Have Housing Concerned About Future Housing: No Difficulty Paying Gas/Electric Bills: No Difficulty Paying for Meds: No Currently Unemployed: No Education: Master's Degree or Higher Difficulty w/ Childcare or Family Care: No Living arrangements: with family Occupation/Education: retired 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 Gender identity (if verbalized by the patient): Female Spiritual care concerns: No Anes - Eval Final PreProcedure Day of Procedure 03/12/25 06:37 Patient weight: overweight Heart: regular rate and rhythm Lungs: clear to auscultation Airway: Mallampati scale class II Neurological: alert and oriented Last oral intake: >/= 8 hours ASA classification: III Emergent: no Anesthetic plan: proceed Anesthesia type and monitoring: monitored anesthesia care Results Review: All pre-operative results and documents have been reviewed as part of the pre- operative evaluation. Informed Consent: The patient's anesthetic plan and its attendant risks and benefits were discussed with the patient/family/POA. Questions were solicited and answers provided to the satisfaction of the patient/family/POA.
[2025-03-12] MEDS: ACETAMINOPHEN 500 MG TABLET 1000 MG PO (06:51)
[2025-03-12] MEDS: LACTATED RINGERS 1,000 ML 30 ML IV CONT (06:51)
[2025-03-12] MEDS: ceFAZolin SODIUM 2 GM/20 ML SW SYRINGE IV PUSH (06:59)
[2025-03-12] MEDS: LIDO 1%/EPINEPHRINE 1:100,000 20 ML VIAL 5 ML INFILTRATE (07:35)
[2025-03-12] MEDS: BUPivacaine HCL 0.5% 10 ML AMP INFILTRATE (07:37)
[2025-03-12] MEDS: LIDOCAINE 1% LOCAL INJ 20 ML VIAL 5 ML INFILTRATE (07:37)
[2025-03-12 07:54] VITALS: BP 114/68; PULSE 77; RESP 18; O2SAT 99
[2025-03-12 08:20] VITALS: BP 131/69; PULSE 67; RESP 18; O2SAT 98
== END 2025-03-12 08:40 | disposition home or self-care (01) ==
PROVIDERS: PCP Internal Medicine; Visit Provider Plastic Surgery
PROC: (CPT 26045; principal; 2025-03-12 07:00)
PROC: 01N54ZZ Release Median Nerve, Percutaneous Endoscopic Approach (ICD-10-PCS; CPT 29848; 2025-03-12 07:00)
PROC: (CPT 64718; 2025-03-12 07:00)
DX: M72.0 Palmar fascial fibromatosis [Dupuytren] (principal); G56.01 Carpal tunnel syndrome, right upper limb; G56.21 Lesion of ulnar nerve, right upper limb
CPT/HCPCS: 29848; 64718; 26123; 26125

== ENCOUNTER 2025-03-12 08:12 | Outpatient (NON) | payer MEDICARE, SELFPAY ==
--- OUTSIDE RECORDS SUMMARY | 2010-04-06 04:45 | XMS_ITS | Continuity of Care Document ---
Author Organization [facility] Address [address] [place] [address] [place] [address] Phone Care Team Providers Care Shot Peen Operator Name Role Phone Alvin Bravo Unavailable Unavailable Procedures Procedure Date Eye Exam, New Patient Dilated Macular Exam Performed 10 Counseling For Antioxidant Supplements O Refraction Advance Directives Directive Yes / No Effective Date File Name No Information Encounters Encounter Description Practice Location Reason(s) For Visit Diagnoses Date Provider Providers Copied on Encounter [facility], [address], [place], [place], [id number], [place] tel:[phone] [facility] No Information 6-201 0 Megsy Edward. [address] , [address], [place], [address], [place]. tel:[phone] Family History Family Member Type Diagnosis Age At Onset No Information Payers Payer name Insurance type Covered libertarian ID Authoriza tion(s) Medicare [facility] [id number] [facility] Commercial BL [id number] Social History Type Description Quantity Date Captured Comments Sex Female Smoking Status No Information Chief Complaint And Reason For Visit No Information Reason For Referral Reason For Referral No Information History Of Present Illness Encounter Date Complaint History Of Prese nt Illness No Information Functional Status Date Functional Assessmen t No Information Instructions Date Instruction Additional Infor mation No Information Assessments Type Assessment Date No Information Patient Care Teams Name Effective Dates (start - stop) Status Members No Information
--- NOTE | 2025-03-12 | S_PTH ---
PATIENT: Sadaf Blunt [facility][id number] AGE/SX: 79/F ROOM: RE03/12/[address]: Rose Jose MD : 1945 BED: DIS: 03/12/2025 SPEC #: [id number] RECD: 03/13/25 08:52 STATUS: DIANA REMaryam #: [id number] LUANA: 03/12/25 00:[address]: Rose Jose DEPT: [facility] Surgical RECD BY: Kasey Gallo ENTERED: 03/13/25 08:56 SP TYPE: Surgical OTHR DR: Sergio Hagen DO Tissues: A - Soft Tissue B - Soft Tissue Procedures: Hematoxylin and Eosin Stain Gross and Microscopic Level 3
== END 2025-03-12 08:13 | disposition home or self-care (01) ==
PROVIDERS: PCP Internal Medicine; Visit Provider Plastic Surgery
DX: M72.0 Palmar fascial fibromatosis [Dupuytren] (principal)
CPT/HCPCS: 88304

== ENCOUNTER 2025-03-26 08:24 | Emergency (ER) | payer MEDICARE, SELFPAY ==
--- NOTE | 2025-03-26 08:52 | ED.BACK ---
HPI - Back Pain/Injury General Chief Complaint: Back Pain/Injury Stated Complaint: BACK PAIN Time Seen by Provider: 03/26/25 08:52 Source: patient Mode of arrival: ambulatory Limitations: no limitations History of Present Illness HPI Narrative: 79 y/o female presented for c/o left mid/lower back pain. Onset 4 days. Denies known injury, denies fall. Says it started after lifting several baskets of mums. Pain is worse with certain movements, especially standing from seated position. Says she had a kyphoplasty L1 about 4 years ago. Denies pain radiating into the hips or legs, numbness, tingling, weakness of the lower extremities, or change in gait, saddle paresthesia or loss of bowel or bladder. Pt has continued taking One Motrin BID and Two Tylenol TID for a few weeks, because she had hand surgery. Also using heating pad and Voltaren gel. Related Data Home Medications ?Medication ?Instructions ?Recorded ?Confirmed ?Last Taken ?Type aspirin 81 mg tablet,delayed 81 mg PO DAILY 06/17/19 03/26/25 03/08/25 History release (Aspir-Low) calcium carbonate 1,500 mg PO DAILY 06/17/19 03/26/25 03/08/25 History multivitamin 1 cap PO DAILY 06/17/19 03/26/25 03/08/25 History vitamins A,C,X-dxeb-bzokcc 2,148 1 tablet PO BID 06/20/19 03/26/25 03/08/25 History mcg-113 mg-45 mg-17.4 mg tablet (PreserVision AREDS) krill oil 500 mg capsule 500 mg PO DAILY 11/14/24 03/26/25 03/08/25 History Allergies Allergy/AdvReac Type Severity Reaction Status Date / Time No Known Allergies Allergy Verified 03/26/25 08:41 Review of Systems Review of Systems: CONSTITUTIONAL: Denies body aches, fever, chills EYES: Denies visual changes CARDIOVASCULAR: Denies chest pain, palpitations, or edema. RESPIRATORY: Denies cough or dyspnea. GASTROINTESTINAL: Denies abdominal pain, nausea, vomiting, or diarrhea. SKIN: Denies rash, or wounds. MUSCULOSKELETAL: reports back pain NEUROLOGIC: Denies headache, numbness, tingling, or weakness. All systems reviewed & are unremarkable except as noted in HPI and below PMFSH Past Medical History Medical History BMI 32.0-32.9,adult Left groin pain Personal history of nicotine dependence Abnormal thyroid blood test Hyperlipidemia Benign essential hypertension Body mass index (bmi) 31.0-31.9, adult (12/23/18) Obesity, unspecified (05/18/16) Hypertension Age related osteoporosis Surgical History Surgical History Status post kyphoplasty L1 History of hand surgery Family History Family History Grandparent Family history of osteoporosis Family history of cardiovascular disease Cerebrovascular accident Mother Family history of osteoporosis Family history of malignant neoplasm of kidney Father Family history of chronic obstructive pulmonary disease, Onset Age: 82 Sibling Family history of lung cancer Family history of malignant neoplasm of brain Other Family history of coronary artery disease Social History Social History Smoking packs per day: 1 Smoking cigarettes per day: 20.0 Years smoked: 40 Smoking pack-years: 40.00 Smoking status: Former smoker Tobacco type: cigarettes Second hand tobacco smoke exposure: Yes Alcohol intake: current Drinks per week: 3 Alcohol use details: WINE Substance use: never Substance use type: does not use Do You Feel Safe in your Home?: Yes Lack of Transportation: No Lack of Food: Never True Current Housing: I Have Housing Concerned About Future Housing: No Difficulty Paying Gas/Electric Bills: No Difficulty Paying for Meds: No Currently Unemployed: No Education: Master's Degree or Higher Difficulty w/ Childcare or Family Care: No Living arrangements: with family Occupation/Education: retired 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 Gender identity (if verbalized by the patient): Female Spiritual care concerns: No Comments At time of signature, I have reviewed and agree with nursing past medical, surgical, social and family history unless otherwise noted. Please see nursing chart for further information. There is no relevant family history pertinent to the presenting complaint Exam Narrative: GENERAL: Well-appearing EYES: conjunctivae clear NECK: Supple. full ROM CHEST: Speaks in full sentences. No respiratory distress. HEART: Regular rate and rhythm. Normal and equal peripheral pulses. MUSC: No Vertebral point tenderness or paraspinal tenderness with palpation, no erythema or rash noted. BLEs with normal strength and sensation, normal range of motion. pulse palpable and equal bilaterally, skin warm, dry, pink. Capillary refill less than 3 seconds. Gait steady. SKIN: Warm, dry, no rash. NEURO: Alert and oriented x3. Course Course Emergency Course: Patient is aware of diagnosis, understands and agrees to treatment plan. Anticipatory guidance given. Patient agrees to follow-up as directed and is aware of reasons to seek care at the emergency department. Portions of this record may have been created with voice recognition software Level of Care: Express Care Visit Vital Signs Vital signs: Reviewed MDM - Back Pain/Injury MDM Narrative Medical decision making narrative: Discussed physical exam findings with pt c/w back strain, neg urine dip. Reviewed RX. Advised supportive measures and s/s to go to the ER. Pt is stable and appropriate for outpt treatment and follow up with pcp. Differential Diagnosis Differential diagnosis: Likely lumbar radiculopathy, sciatica, strain of lumbar region, renal colic, pyelonephritis and discitis Lab Data Labs: Lab Results 03/26/25 Range/Units 09:08 POC Urine Color Yellow POC Urine Clarity Clear POC Urine pH 7.0 POC Ur Specif [place] 1.015 POC Urine Protein Negative (Negative) POC Ur Glucose (UA) Negative (Negative) POC Urine Ketones Negative (Negative) POC Urine Blood Negative (Negative) POC Urine Nitrite Negative (Negative) POC Urine Bilirubin Negative (Negative) POC Urine Urobilinogen 0.2 POC U Leukocyte Esteras Negative (Negative) Discharge Plan Discharge Clinical Impression: Back strain Qualifiers: Encounter type: initial encounter Qualified Code(s): S39.012A - Strain of muscle, fascia and tendon of lower back, initial encounter Patient Disposition: Home Condition: Stable Instructions: Back Pain (ED) Additional Instructions: Please follow up with your Primary Care Doctor within 48-72 hours - call for an appointment. Avoid lifting. pushing. pulling, or anything that worsens the pain. Walking and other gentle exercising several times a week has been shown to improve back pain; bed rest is not recommended. Take Motrin 600 every 8 hours with food for the next 2-3 days, along with Tylenol 1000mg every 8 hours Take muscle relaxers every 8 hours as needed for muscle spasm- do not drive or make any important decisions while on this medication for it can make you drowsy. Over the counter pain cream like icy/hot or biofreeze, or Salon pas/lidocaine 4% patch. You may apply heat or cold to the area as needed. Go to the ER immediately If you experience any worsening pain, swelling, numbness, weakness, problems with bladder or bowel function, weakness or loss of feeling in one or both of your legs, or any other serious concerns. Patient Language: Persian Prescriptions: New ibuprofen 600 mg tablet 600 mg PO TID PRN (Reason: pain) Qty: 14 0RF cyclobenzaprine 5 mg tablet 5 mg PO TID PRN (Reason: muscle spasm) Qty: 10 0RF No Action albuterol sulfate [Ventolin HFA] 90 mcg/actuation HFA aerosol inhaler 2 puff inhalation QID PRN (Reason: shortness of breath or wheezing) Qty: 6.7 0RF calcium carbonate 600 mg calcium (1,500 mg) tablet 1,500 mg PO DAILY multivitamin Capsule 1 cap PO DAILY aspirin [Aspir-Low] 81 mg tablet,delayed release (DR/EC) 81 mg PO DAILY PreserVision AREDS 7,160-113-100 trri-or-jmfk tablet 1 tablet PO BID krill oil 500 mg capsule 500 mg PO DAILY cholecalciferol (vitamin D3) 50 mcg (2,000 unit) tablet 50 mcg PO DAILY Qty: 90 1RF levothyroxine 50 mcg tablet 50 mcg PO DAILY Qty: 90 2RF lisinopril 30 mg tablet 30 mg PO DAILY Qty: 90 2RF hydrochlorothiazide 25 mg tablet 25 mg PO DAILY Qty: 90 2RF Follow-up/Referrals: Sergio Hagen DO [Primary Care Provider, Internal Medicine] Time of Disposition: 09:26
[2025-03-26 09:27] LABS: EDUAAPPEAR Clear; EDUABILI Negative (Negative); EDUABLOOD Negative (Negative); EDUACOLOR1 Yellow; EDUAGLUCOSE Negative (Negative); EDUAKETONE Negative (Negative); EDUALEUKO Negative (Negative); EDUANITRATE Negative (Negative); EDUAPH 7.0; EDUAPROTEIN Negative (Negative); EDUASPGRAVITY 1.015; EDUAUROBILI 0.2
== END 2025-03-26 09:31 | disposition home or self-care (01) ==
PROVIDERS: Emergency Provider Nurse Practitioner Family; PCP Internal Medicine
DX: S39.012A Strain of muscle, fascia and tendon of lower back, initial encounter (principal); I10 Essential (primary) hypertension; E78.5 Hyperlipidemia, unspecified; Z79.82 Long term (current) use of aspirin; Z87.891 Personal history of nicotine dependence; X50.0XXA Overexertion from strenuous movement or load, initial encounter
CPT/HCPCS: 81003; 99213; G0463

== ENCOUNTER 2025-03-31 11:36 | Outpatient (CLI) | payer MEDICARE, SELFPAY ==
--- NOTE | ~2025-03-31 | XR_ITS ---
XR lumbar spine 2-3V Indication: Dorsalgia, unspecified Comparison: None Findings: There are kyphoplasty changes at L1 with loss of height 90%. No acute fracture or subluxation. Moderate loss of disc height at L3-4 and L4-5. Soft tissues unremarkable Impression: No acute abnormality. Reviewed, dictated and finalized at location P. Impression: No acute abnormality.
== END 2025-03-31 11:37 | disposition home or self-care (01) ==
LOC: GOSHIMG 11:36
PROVIDERS: PCP Internal Medicine; Visit Provider Internal Medicine
DX: M54.9 Dorsalgia, unspecified (principal)
CPT/HCPCS: 72100